=== PATIENT | male | born 1960 | race Caucasian/White ===

== ENCOUNTER → 2019-12-22 12:55 | Outpatient (CLI) | payer BC, SELFPAY ==
--- NOTE | 2019-12-22 13:08 | CR.HP_ITS ---
CR - History & Physical - General Arrival date:: 12/22/19 Arrival time:: 13:00 Date of Referral:: 12/10/19 - Changed insurance, Tana Espino is not in network so is changing to [facility] for his CR. Date of CR Evaluation:: 12/22/19 Referring Physician: DR. BETTINA ORTA Primary Diagnosis: S/P MITRAL VALVE REPLACEMENT - History of Present Cardiac Event Onset Date: Enter Onset Date of cardiac illnesses in Comment field below Heart valve replacement or repair:: Yes - MITRAL VALVE REPAIR w/CLIP IN 2017, MITRAL VALVE REPLACED 08/02/2019 Type of Symptoms:: FAILED PREVIOUS REPAIR - Medications Home Medications: Ambulatory Orders Medication Instructions Recorded Acetaminophen [Acetaminophen 8 650 mg PO 12/22/19 Hour] Atorvastatin Calcium [Lipitor] 20 mg PO QHS 12/22/19 Daily Vitamin Formula-Minerals 12/22/19 Enalapril Maleate [Vasotec] 15 mg PO QHS 12/22/19 Metoprolol Succinate [Toprol Xl] 25 mg PO 12/22/19 - Allergies Allergies/Adverse Reactions: Allergies spironolactone Allergy (Verified 12/22/19 13:23) RENAL INSUIFFICIENCY - Sleep Disorder Evaluation Hx of Sleep Apnea: Yes Do you snore loudly (louder than talking or can be heard through closed doors)?: Yes - HAS CPAP DEVICE USES QHS @ HOME Advanced Directives - Advanced Directives Power of Filtration Supervisor: Yes Living Will: Yes Advance Directives Information Provided: No Advance Directives on File: No - PATIENT ASKED TO BRING FOR SCANNING TO HIS EHR. DNR Order?:: No - MOLST See MOLST form: No Past Medical History - Covid-19 Screening Fever: No Unexplained muscle aches: No Current respiratory symptoms: No Upper respiratory infections symptoms: No Gastro-intestinal symptoms: No [id number] symptoms: No Has tested positive for COVID-19 in last 30 days: No Had contact w/person w/symptoms or Covid-19 (+) last 14 days: No Has High Risk Exposures ID'd by Health dept/Inf Control team: No 65 years or older:: No Lives in Assisted Living facility:: No Has a chronic lung disease or moderate to severe asthma:: No Has a serious heart condition:: Yes Immunocompromised:: No Severely obese (Body Mass Index of 40 or higher):: No Diabetic:: No Has chronic kidney disease undergoing dialysis:: No Has liver disease:: No - Past Medical Illness Medical History: Past Medical History (Last Updated 12/22/19 @ 13:32 by Jaime Castillo CRT, [place], BS) Arrhythmia I49.9 PAF CAD (coronary artery disease) I25.10 CHF (congestive heart failure) Onset Date: ~11/2018 I50.9 COLONOSCOPY Onset Date: ~1999 Cardiogenic shock R57.0 Chest pain at rest R07.9 DIAGNOSTIC CARDIAC CATH Onset Date: ~2002 History of acute anterior wall myocardial infarction I25.2 NSTEMI Hyperlipidemia E78.5 Hypertension Onset Date: ~07/10/16 I10 - Past Surgical History Surgical History: Past Surgical History (Last Updated 12/22/19 @ 13:33 by Jaime Castillo CRT, [place], BS) H/O coronary artery bypass surgery Onset Date: ~01/10/18 Z95.1 H/O mitral valve replacement Onset Date: ~03/25/18 Z95.2 UNSUCCESSFUL History of appendectomy Z90.49 History of appendectomy Onset Date: ~1966 Z90.49 History of cardiac catheterization Onset Date: ~01/09/18 Z98.890 History of oral surgery Z98.890 History of tonsillectomy Onset Date: ~1968 Z90.89 Status post implantation of mitral valve leaflet clip Onset Date: ~04/07/18 Z98.890, Z95.818 OPEN mvr FAILED D/T ADHESIONS, CLIP 10 DAYS LATER - Family History Summary Family History: Family History (Last Updated 12/22/19 @ 13:34 by Jaime Castillo CRT, [place], BS) Other CAD (coronary artery disease) Cancer Diabetes High cholesterol Hypertension Myocardial infarction Social History - Smoking History Smoking Status: Never smoker Hx Tobacco Use: No Hx Smoking Exposure: No - Alcohol Use Alcohol Usage: Yes - VERY RARELY - Substance Abuse Hx Substance Use: No - Occupation Occupation (List type of work in comments):: Retired - [employer] - Hobbies, Recreation, Social Activities Hobbies: Sports - GOLF, Reading, Watch TV, Walking, Exercise - BIKE RIDING, Other Recreational Activities: I am able to engage in all my recreational activities Social Environment - Status Marital Status: Single - Current Living Arrangements Living Environment:: Family - Children Do any of your children live nearby?: No - Safety Do you feel safe in your surroundings?: Yes - Assistance Do you need any assistance at home?: NO Review of Systems - Review of Systems Hints: Right click = Denies ([place]ash). Left click = Reports ([place]) Review of Present Symptoms: Reports: Shortness of Breath with Exertion - STILL SLIGHT BUT VERY MUCH IMPROVED SINCE THIS RECENT SURGERY, Wound Healing, Heart Arrhythmia/Irregularities - SINUS RHYTHM W HX OF RBBB, Appetite - Normal, Appetite - Special Diet - LOW SODIUM, LOW FAT, LOW CHOLESTEROL, Sleep - Normal - HAS HOME CPAP NO OXYGEN WEARS NIGHTLY.. Denies: Shortness of Breath at Rest, Dizziness/Lightheadedness, Fatigue - Pain Is Patient Pain Free?: Yes Pain Location: none Pain Level: 0/10 Risk Factor Assessment - Chief Complaint Chief Complaint: PATIENT PRESENTST O CARDIAC REHAB TODAY FOLLWOING RECENT MITRAL VALVE REPLACEMENT SURGERY AT THE [facility]. HE HAD PREVIOUS ATTEMPT MITRAL VALVE W/CLIP HOWEVER THAT ATTEMPT VALVED WHENT HE CLIP STARTED TO LEAK. SUBSEQUENTLY THE PATIENT UNDERWENT A SECOND PROCEDURE THIS TIME A FULL MITRAL VA LVE REPLACEMENT WAS DONE. - Vital Signs Temperature: 97.7 F Respiratory Rate: 16 Pulse Ox: 98 Blood Pressure: 110/72 - Pulse Pulse Rate: 74 Pulse Rhythm: Regular - Hypertension How long have you been treated?: 30 On medication(s)?: YES Blood Pressure Sitting - Left Arm: 110/72 - Blood Cholesterol/Lipids Total Cholesterol (mg/dL) Goal = less than 200 mg/dL: 0 - UNAVAILABLE FROM THE [facility] - Diabetes Nutrition Referral for Diabetes: No - Obesity Height: 5 ft 6 in Weight:: 158 lb 9.6 oz Weight in Pounds: 158.6 lbs Weight Source: Standing Scale Body Mass Index (BMI): 25.6 Nutritional Referral for Obesity: No - Physical Inactivity Physical Inactivity: Reg Exercise 30 min/day - WALKING BROTHER'S DOG DAILY, AND HAVE ALOS GOLFED W/CART A FEW TIMES., Recreational activity - Risk Stratification Risk Guidelines: Lowest Risk: Risk Factor for Smoking, Risk Factor for Dyslipidemia, Risk Factor for Hypertension - For Smoking Smoking Risk Guidelines: Smoking Low Risk: None or quit greater than 6 months ago. Smoking Moderate Risk: Smoker or quit 6 months or less ago. Smoking High Risk: Smoker - For Dyslipidemia Dyslipidemia Risk Guidelines: Low Risk: Moderate Risk: High Risk: 15-25% fat 25.1-29% fat >/= 30% fat. <7% sat fat 7-9% sat fat >9% sat fat. <150 mg chol 150-299 mg chol >/= 300 mg chol. LDL <100 LDL 100-129 LDL >/= 130. Chol/HDL ratio <5.0 Chol/HDL ratio 5.0-6.0 Chol/HDL ratio >6.0. Triglycerides <100 Triglycerides 100-149 Triglycerides >/= 150 - For Diabetes Mellitus Diabetes Risk Guidelines: Diabetes Low Risk: HgA1c <6.5% and/or FBG <120. Diabetes Moderate Risk: HgA1c 6.6-7.9% and/or FBG 120-180. Diabetes High Risk: HgA1c >/= 8% and/or FBG >180 - For Obesity/Overweight Obesity/Overweight Risk Guidelines: Obesity Low Risk: BMI <25.0. Obesity Moderate Risk: BMI 25-29.9. Obesity High Risk: BMI >/= 30.0 - For Hypertension Hypertension Risk Guidelines: Hypertension Low Risk: Systolic <120 and Diastolic <80. Hypertension Moderate Risk: Systolic 120-139 and Diastolic 80-89. Hypertension High Risk: Systolic >/= 140 and Diastolic >/= 90 - For Sedentary Lifestyle Sedentary Lifestyle Risk Guidelines: Sedentary Lifestyle Low Risk: >/= 1,500 kcal/week. Sedentary Lifestyle Moderate Risk: 700-1,499 kcal/week. Sedentary Lifestyle High Risk: < 700 kcal/week - For Depression Depression Risk Guidelines: Depression Low Risk: Not clinically depressed. Depression Moderate Risk: Mildly depressed. Depression High Risk: Clinically depressed - Family History Family History: Family History (Last Updated 12/22/19 @ 13:34 by Jaime Castillo, SEATER ASSEMBLER, HOT METAL MIXER OPERATOR, BS) Other CAD (coronary artery disease) Cancer Diabetes High cholesterol Hypertension Myocardial infarction Motivation - Motivation to Participate On a scale of 1 to 10, how prepared are you to commit to attending program?: 10 What do you see as barriers to successfully being able to complete the program?: NONE What do you see as the benefits of succesfully completing the program? In other words, what do you hope to get out of participating in the program?: GETTING BACK TO HEALTH, BUILDING MY STAMINA Are there issues you are dealing with that will interfere with completing the p rogram?: NONE, OCCASIONALLY HAVE LEG PAIN FROM ARTHRITIS ON L5 CAUSING SCIATIC PAIN Do you have a spouse or signficant other, family or friends who will help support you to complete the program?: YES
--- NOTE | 2019-12-22 13:09 | CR.ITP_ITS ---
Diagnosis - General Information Admitting Diagnosis: S/P MITRAL VALVE REPLACEMENT Secondary Diagnosis: CAD, CHF, H/O ACUTE ANTERIOR DC NSTEMI, HYPERLIPIDEMIA, HYPERTENSION, MITRAL VALVE REPAIR W/CLIP UNSUCCESSFUL, CABG. Personal Learning Style:: Audio/Visual, Written Barriers to Learning: Vision Impairment Gave educational material for:: Treating Heart Disease, Emotions & Heart Disease, Stress Management & Relaxation, Sleep Disorders & Heart Disease, How The Heart Works, What it means to have Heart Disease, How Coronary Artery Disease is Diagnosed, Heart Procedures, What Heart Medications Do, Risk Factors & Modifications, Living an Active Life, Nutrition - Education/Goals Individual Counseling: Initial Assessment: Abnormal Cholesterol Levels, High Blood Pressure Cardiac Rehabilitation Goals: 1. Maintain the individual as the primary focus of care. 2. To improve the patient's quality of life. 3. Identification of cardiac risk factors and provide cardiac risk factor management. 4. Enhance the psychosocial status of the patient. 5. Reconditioning enough to allow the patient to resume customary activities. 6. Control symptoms of cardiac disease Personal Goals: Initial Assessment: Improve energy level, Participate in home exercise program, Get back to work, or to resume activities faster, Improve muscle strength and endurance, Improve diet and eating habits (eat healthier), Control risk factors (learn risk factor modification) Scale for measuring improvement of personal goals: Enter appropriate number in Comments. 2 = Unchanged. 3 = Slightly Better. 4 = Moderate Improvement. 5 = Met my Goal - Diagnosis & Disease Process Outcomes/Goals: Pt IDs own risk factors & lifestyle modifications by Session 10, Verbalizes symptoms of angina & response by session 3., Pt independently manages Plan/Interventions: Assist Pt to ID & engage in lifestyle modification to reduce CVD risk, Instruct on individual risk factors, Review symptoms of angina & emergency actions, Review secondary diagnosis & identify educational needs. - Safety Referral to Physical Therapy: No Referral to [facility] Case Management: No Fall Risk Assessed:: Yes Assistive Devices:: None Exercise - Initial Assessment - Visit Date of Eval: 12/22/19 Session #:: 0 - INITIAL EVALUATION PRE CARDIAC REHAB Mets: Pre-: >5 METS for 30 minutes by discharge - Physician Prescribed Exercise Modalities: Treadmill, Rower, Airdyne, NuStep Frequency: 3x/week for 12 weeks [36 sessions] Intensity: 60-80% maximum heart rate reserve from GXT Current METSs:: 3.5 Target Heart Rate:: 104-136 Current RPE:: 11-13 Resting Blood Pressure: 110/72 EKG Type: SINUS RHYTHM W/RBBB Current Physical Activity or Exercising minutes: 30 DAILY WALKING - Outcomes & Goals Goals:: Verbalizes understanding of THR, RPE & goal METS by session 6, Documents in home exercise log/reports 30 min aerobic 5 day/wk by DC, Demonstrates accurate pulse taking by DC - Intervention & Plan Exercise Program Goals: Instruct on personal THR & RPE, Instruct on MET level & personal MET goal, Instruct on home exercise - Physical Activity Home Exercise Physical Activity - Home Exercise: Safe Exercise, Warm-up, Self-monitoring, Cool-Down, Home Exercise > 30 min Daily, Sitting Time <3 hours/daily - Outcomes & Goals Outcomes/Goals: Demonstrates correct Warm-up/exercise Cool-Down (S3) if = 2.5 METs, Verbalizes symptoms of exercise intolerance by Session 3 (S3), Demonstrate safe equipment use (S3) & follows exercise prescrition (6) - Intervention & Plan Plan/Intervention: Instruct warm-up & cool-down if exercising at > 2 METs, Instruct on symptoms of exercise intolerance & actions to take, Instruct & monitor on saf, Assess intial functional capacity & safety risk Nutrition - Initial Assessment - Program Goals Nutrition Program Goals: LDL <100 optimal. 100 - 129 Near optimal. 130 - 159 Borderline High. 160 - 189 High. Total Cholesterol <200 desirable. 200 - 239 Borderline High. >/= 240 High. HDL < 40 Low >/=60 High. Triglycerides <150 desirable. <199 optimal. VlDL 5 - 40. HgbA1C <7%. BMI <25 - Visit Date of Assessment:: 12/22/19 Session #:: 0 - INITIAL EVALUATION PRE CARDIAC REHAB - Cholesterol/Lipids Determine presence & major risk factors that modify LDL goal: Hypertension or hypertensive medication, Family history of premature CHD in Male < 55 years: female <65 yearsFa Outcomes/Goals: Pt IDs own risk factors & lifestyle modifications by Session 10, Verbalizes symptoms of angina & response by session 3., Pt independently manages Intervention/Plan: Instruct on personal lipid levels & lipid goals/NCEP guidelines, Instruct on cholesterol - Diabetes (Other Core Measures) Diabetes Type: Not Applicable - Weight Mgt (Other Care) Not Applicable: Yes Height: 5 ft 6 in Weight:: 158 lb 8 oz BMI: 25.5 Diagnosis Overweight/Obesity BMI> 30% ICD-10 E66: No Diagnosis High BMI/Morbid Obesity BMI> 35% ICD-10 Z68: No Outcomes/Goals: Pt sets, maintains & shows weight loss goal & trend during rehab Intervention/Plan: Instruct on ideal BMI & set weight loss goal w/patient - Healthy Eating Habits Will attend diet classes:: Yes Outcomes/Goals:: Consume diet rich in vegs,fruits,whole grain/high fiber,fish,lean meat, Limit sat/trans fats,cholesterol & added salts & sugars Intervention/Plan:: Assess current eating habits - Education Gave educational materials for:: Healthy eating Medical - Initial Assessment - Visit Date of Eval: 12/22/19 Session #:: 0 - INITIAL EVALUATION PRE-CARDIAC REHAB - Medication Compliance Preventative Medication(s):: Aspirin, MO inhibitor, Clopidogrel/P2Y12 inhibit, Ticagrelor/P2Y12 inhibitor, Statin/lipid, Beta vee, Warfarin/Coumadin, Eliquis, ARB (Angiotensi Rcap) H/O mental health issues: depression, anxiety, or addiction?: No Doesn?t believe in the benefits of treatment?: No Believes medications are unnecessary or harmful?: No Has a concern about medication side effects?: No Expresses concern over the cost of medications?: No Outcomes/Goals: Verbalizes medications,desired effect & common side effects @ DC, Pt self-reports following medication regimen, Keeps card in wallet w/medications listed by DC Interventions/plans: Instruct on medication effects & side effects, Review medication list w/patient every two weeks, Instruct importance of taking meds as ordered & assist problem solving - Tobacco Use Tobacco Use: Non-smoker - Hypertension Hypertension Diagnosis:: Hypertension ICD-10 I10 Resting Blood Pressure:: 110/72 Citizen [place] [employer] Hypertension Guidelines: Citizen [place] [employer] Hypertension Guidelines. Normal BP Less than 120/80. Elevated BP 120/80. Hypertension Stage 1: BP 130-139/80-89. Hypertesnion Stage 2: BP 140 or higher/90 or higher. Hypertension Crisis: BP higher than 180/120 Outcomes/Goals: Able to verbalize/achieve optimal blood pressure <130/80, Incorporates diet changes & exercise for blood pressure control by DC Interventions/plan: Instruct on optimal blood pressure, hypertension & medications, Instruct on effects of sodium, alcohol, stress, exercise &hypertension - Tobacco Cessation Referral Smoking Cessation Referral:: No Individual Education/Counseling:: No Education Schedule Given:: Yes - INCLUDING INSTRUCTION FOR ONLINE EDUCATION D/T COVID-19 SOCIAL DISTANCING Psychosocial - Initial Assess - VIsit Date of Eval: 12/22/19 Session #:: 0 - INITIAL EVALUATION Not Applicable: Yes History of previous Mental disease:: No - Target Goals Target Goals: Assess presence or absence of depression. Using a valid screening tool, maximizes coping skills. Positive support system - Psychosocial Test Tool Used:: Ferrans Ayo QOL Cardiac, PHQ-9 Questionnaire phq-9 Severity: Severity. 1-4 Minimal Depression. 5-9 Mild Depression. 10-14 Moderate Depression. 15-19 Moderately Sever Depression. 20-27 Severe Depression. Rule: - Outcomes/Goals: See list Psychosocial Outcomes/Goals:: ID's personal stressors & 2 strategies to manage stress by discharge - Intervention/Plan: See List Interventions/Plan:: Assess stressors,coping strategies & signs of derpression on admission, Instruct/assist pt to develop coping & personal stress Mgt strategies, Instruct patient to recognize signs & symptoms of depression, Instruct patient to recog Patient Health Questionnaire Initial Assessment 1. Little interest or pleasure in doing things: Several days 2. Feeling down, depressed, or hopeless: Not at all 3. Trouble falling or staying asleep, or sleeping too much: Not at all 4. Feeling tired or having little energy: Several days 5. Poor appetite or overeating: Several days 6. Feeling bad about yourself -- or that you are a failure or have let yourself or your family down: Not at all 7. Trouble concentrating on things, such as reading the newspaper or watching television: Not at all 8. Moving or speaking so slowly that other people could have noticed. Or the opposite - being so fidgety or restless that you have been moving around a lot more than usual: Not at all 9. Thoughts that you would be better off , or of hurting yourself in some way: Not at all How difficult have these problems made it for you to do your work, take care of things at home, or get along with other people?: Not difficult at all Total Score: 3 FRACISCO-Q SV Test - Statements CAD is a disease of the arteries in the heart: False Examples of risk factors for heart disease: True Angina is chest pain or discomfort: True The benefits of resistance training include: True Eating more meat and dairy products: False Anti-platelet medications such as aspirin are important: True The only effective way to manage stress: False An exercise warm-up slowly increases heart rate: I Don't Know Prepared, processed foods usually have high sodium: True Depression is common after a heart attack: True The statin medications lower cholesterol: True To control blood pressure, lower the amount of sodium: True If someone gets chest discomfort during walking: False Transfats are partially hydrogenated vegetable oils: I Don't Know Sleep apnea that is not treated increases the risk: I Don't Know To control cholesterol, one should become a vegetarian: I Don't Know Someone knows if he/she is exercising at the right level: True Diabetes cannot be prevented with exercise & health eating: I Don't Know Stress is a large risk for heart attack: True A diet that can help lower blood pressure is rich in: True - Total Score Total Correct Responses: 15 Self-Efficacy Initial Assessment We would like to know how confident you are in doing certain activities. Please select your confidence level for:: Select your confidence level for the following using the scale 1-10 where 1 is not at all confident and 10 is totally confident. Your score is the average of all 6 responses. Fatigue: How confident are you that you can keep the fatigue caused by your disease from interfering with the things you want to do? Select Number: 4 Physical Discomfort or Pain: How confident are you that you can keep the physical discomfort or pain of your disease from interfering with the things you want to do? Select Number: 4 Emotional Distress: How confident are you that you can keep the emotional distress caused by your disease from interfering with the things you want to do? Select Number: 8 Other Symptoms or Health Problems: How confident are you that you can keep other symptoms or health problems from interfering with the things you want to do? Select Number: 8 Different Tasks and Activities: How confident are you that you can do the different tasks and activities needed to manage your health condition so as to reduce your need to see a doctor? Select Number: 9 Medication: How confident are you that you can do things other than just taking medication to reduce how much your illness affects your everyday life? Select Number: 9 Total Score:: 7 Nutrition Survey - Nutrition Survey Instructions Scoring Instructions: Scoring is as follows: Yes = 1 points. No = 0 point. Patient score that is >/=12 is considered to be at potential nutritional risk and could benefit from a referral to a registered dietitian. - Nutrition Survey Initial Have you lost >10 lbs over the past 2 months without trying?: No Are you following a special diet at home for diabetes, low fat, or low salt?: Yes Are you interested in meeting with a dietitian for help understanding your diet?: Yes Do you eat less than 3 meals a day?: Yes Do you eat fatty meats (herman, sausage, ribs, etc), fried foods, desserts, large amounts of salad dressings, margarine, butter, or cheese most days?: No Do you have food allergies? [Enter types in comment field]: No Do you eat in restaurants more than 3 times a week?: No Do you season food with salt, seasoning salt, or garlic salt?: No Do you used canned, boxed, frozen meals, or soups, seasoning packets?: No Total Score:: 3
[2019-12-22 13:47] VITALS: BP 110/72; PULSE 74; RESP 16; TEMP 36.5; O2SAT 98; BMI 25.6
[2019-12-22 14:51] VITALS: BP 110/72; BMI 25.5
== END ==
PROVIDERS: PCP Family Medicine
DX: I11.0 Hypertensive heart disease with heart failure (principal); I50.9 Heart failure, unspecified; E78.5 Hyperlipidemia, unspecified; I25.10 Atherosclerotic heart disease of native coronary artery without angina pectoris

== ENCOUNTER 2019-12-31 13:00 | Outpatient (RCR) | payer BC, SELFPAY ==
[2019-12-22 13:47] VITALS: BMI 25.6
== END 2019-12-31 23:59 ==
LOC: CR 13:00
PROVIDERS: PCP Family Medicine
DX: I34.0 Nonrheumatic mitral (valve) insufficiency (principal)
CPT/HCPCS: 93798

== ENCOUNTER 2020-01-31 13:00 | Outpatient (RCR) | payer BC, SELFPAY ==
[2019-12-22 13:47] VITALS: BMI 25.6
[2019-12-22 14:51] VITALS: BMI 25.5
--- NOTE | 2020-01-24 08:41 | PCM.CR.ITP ---
Exercise - 30-day Assessment - Visit Date of Eval: 01/24/20 Session #:: 12 - Physician Prescribed Exercise Modalities: Treadmill, Airdyne, NuStep Frequency: 3x/week for 12 weeks [36 sessions] Intensity: 60-80% of age predicted maximum heart rate reserve Current METSs:: 4.5 Target Heart Rate:: 104-136 Current RPE:: 12-13 Maximum Excercise HR:: 114 Resting Blood Pressure: 94/50 Maximum Exercise Blood Pressure: 132/70 EKG Type: sinus bradycardia sinus rhythm BBB occasional PVCs and PACs - Outcomes & Goals Goals:: Verbalizes understanding of THR, RPE & goal METS by session 6, Documents in home exercise log/reports 30 min aerobic 5 day/wk by DC, Demonstrates accurate pulse taking by DC - Intervention & Plan Exercise Program Goals: Instruct on personal THR & RPE, Instruct on MET level & personal MET goal, Show patient to take own pulse /validate performance until accurate, Instruct on home exercise - 30-day Reassessments 30 day Reassessments:: Progressing - Physical Activity Home Exercise Physical Activity - Home Exercise: Safe Exercise, Warm-up, Self-monitoring, Cool-Down, Home Exercise > 30 min Daily, Sitting Time <3 hours/daily - Outcomes & Goals Outcomes/Goals: Demonstrates correct Warm-up/exercise Cool-Down (S3) if = 2.5 METs, Verbalizes symptoms of exercise intolerance by Session 3 (S3), Demonstrate safe equipment use (S3) & follows exercise prescrition (6) - Intervention & Plan Plan/Intervention: Instruct warm-up & cool-down if exercising at > 2 METs, Instruct on symptoms of exercise intolerance & actions to take, Instruct & monitor on saf, Assess intial functional capacity & safety risk - 30-day Reassessments 30 day Reassessments:: Progressing Nutrition - Initial Assessment - Program Goals Nutrition Program Goals: LDL <100 optimal. 100 - 129 Near optimal. 130 - 159 Borderline High. 160 - 189 High. Total Cholesterol <200 desirable. 200 - 239 Borderline High. >/= 240 High. HDL < 40 Low >/=60 High. Triglycerides <150 desirable. <199 optimal. VlDL 5 - 40. HgbA1C <7%. BMI <25 Patient has diagnosis of Hyperlipidemia (ICD E78)?: Yes - Visit Date of Assessment:: 01/24/20 Session #:: 12 - no updated labs - Cholesterol/Lipids Determine presence & major risk factors that modify LDL goal: Hypertension or hypertensive medication, Age men > 45 years; women >/= 55 years Outcomes/Goals: Pt IDs own risk factors & lifestyle modifications by Session 10, Verbalizes symptoms of angina & response by session 3., Pt independently manages Intervention/Plan: Instruct on personal lipid levels & lipid goals/NCEP guidelines, Instruct on cholesterol Referral to dietitian:: Yes - Diabetes (Other Core Measures) Diabetes Type: Not Applicable - Weight Mgt (Other Care) Not Applicable: Yes Height: 5 ft 6 in Weight:: 160 lb BMI: 25.8 Diagnosis Overweight/Obesity BMI> 30% ICD-10 E66: No Diagnosis High BMI/Morbid Obesity BMI> 35% ICD-10 Z68: No Outcomes/Goals: Pt sets, maintains & shows weight loss goal & trend during rehab Intervention/Plan: Instruct on ideal BMI & set weight loss goal w/patient, Assist pt to ID & incorporate diet changes for weight loss by S9, Encourage goal of using 250-300dcal per session for weight loss - Healthy Eating Habits Outcomes/Goals:: Consume diet rich in vegs,fruits,whole grain/high fiber,fish,lean meat, Limit sat/trans fats,cholesterol & added salts & sugars Intervention/Plan:: Assess current eating habits - Education Gave educational materials for:: Healthy eating Medical- 30-Day Assessment - Visit Date of Eval: 01/24/20 Session #:: 12 - Medication Compliance Preventative Medication(s):: Aspirin, Statin/lipid, Beta vee H/O mental health issues: depression, anxiety, or addiction?: No Doesn?t believe in the benefits of treatment?: No Believes medications are unnecessary or harmful?: No Has a concern about medication side effects?: No Expresses concern over the cost of medications?: No Outcomes/Goals: Verbalizes medications,desired effect & common side effects @ DC, Pt self-reports following medication regimen, Keeps card in wallet w/medications listed by DC Interventions/plans: Instruct on medication effects & side effects, Review medication list w/patient every two weeks, Instruct importance of taking meds as ordered & assist problem solving 30-day Reassessments:: Progressing - Tobacco Use Tobacco Use: Non-smoker - Hypertension Hypertension Diagnosis:: Hypertension ICD-10 I10 Resting Blood Pressure:: 94/50 - controlled [place] [employer] Hypertension Guidelines: [place] [employer] Hypertension Guidelines. Normal BP Less than 120/80. Elevated BP 120/80. Hypertension Stage 1: BP 130-139/80-89. Hypertesnion Stage 2: BP 140 or higher/90 or higher. Hypertension Crisis: BP higher than 180/120 Peak Exercise Blood Pressure:: 132/70 Outcomes/Goals: Able to verbalize/achieve optimal blood pressure <130/80, Incorporates diet changes & exercise for blood pressure control by DC Interventions/plan: Instruct on optimal blood pressure, hypertension & medications, Instruct on effects of sodium, alcohol, stress, exercise &hypertension 30 day Reassessments:: Progressing - Tobacco Cessation Referral Smoking Cessation Referral:: No Individual Education/Counseling:: No Education Schedule Given:: Yes Psychosocial - 30-Day Assess - VIsit Date of Eval: 01/24/20 Session #:: 12 Not Applicable: Yes History of previous Mental disease:: No - Target Goals Target Goals: Assess presence or absence of depression. Using a valid screening tool, maximizes coping skills. Positive support system - Psychosocial Test Tool Used:: Rashmi Rollins QOL Cardiac, PHQ-9 Questionnaire phq-9 Severity: Severity. 1-4 Minimal Depression. 5-9 Mild Depression. 10-14 Moderate Depression. 15-19 Moderately Sever Depression. 20-27 Severe Depression. Rule: - Referral to Behavioral Health PS - Interventions: Yes Attend Stress Management Classes, No Referral to Behavioral Health if PHQ-9 score >9:, No Referral to [facility], No Referral to Physician if PHQ-9 if score is 5-9: - Outcomes/Goals: See list Psychosocial Outcomes/Goals:: ID's personal stressors & 2 strategies to manage stress by discharge - Intervention/Plan: See List Interventions/Plan:: Assess stressors,coping strategies & signs of derpression on admission, Instruct/assist pt to develop coping & personal stress Mgt strategies, Instruct patient to recognize signs & symptoms of depression, Instruct patient to recog - 30-day Reassessments: 30 day Reassessments:: Progressing Patient Health Questionnaire 30-Day Re-eval Assessment 1. Little interest or pleasure in doing things: Not at all 2. Feeling down, depressed, or hopeless: Not at all 3. Trouble falling or staying asleep, or sleeping too much: Not at all 4. Feeling tired or having little energy: Several days 5. Poor appetite or overeating: Several days 6. Feeling bad about yourself -- or that you are a failure or have let yourself or your family down: Not at all 7. Trouble concentrating on things, such as reading the newspaper or watching television: Not at all 8. Moving or speaking so slowly that other people could have noticed. Or the opposite - being so fidgety or restless that you have been moving around a lot more than usual: Not at all 9. Thoughts that you would be better off , or of hurting yourself in some way: Not at all How difficult have these problems made it for you to do your work, take care of things at home, or get along with other people?: Not difficult at all Total Score: 2 Self-Efficacy 30-Day Re-eval Assessment We would like to know how confident you are in doing certain activities. Please select your confidence level for:: Select your confidence level for the following using the scale 1-10 where 1 is not at all confident and 10 is totally confident. Your score is the average of all 6 responses. Fatigue: How confident are you that you can keep the fatigue caused by your disease from interfering with the things you want to do? Select Number: 5 Physical Discomfort or Pain: How confident are you that you can keep the physical discomfort or pain of your disease from interfering with the things you want to do? Select Number: 5 Emotional Distress: How confident are you that you can keep the emotional distress caused by your disease from interfering with the things you want to do? Select Number: 8 Other Symptoms or Health Problems: How confident are you that you can keep other symptoms or health problems from interfering with the things you want to do? Select Number: 8 Different Tasks and Activities: How confident are you that you can do the different tasks and activities needed to manage your health condition so as to reduce your need to see a doctor? Select Number: 9 Medication: How confident are you that you can do things other than just taking medication to reduce how much your illness affects your everyday life? Select Number: 9 Total Score:: 7
[2020-01-24 08:51] VITALS: BP 132/70; BP 94/50; BMI 25.8
== END 2020-01-31 23:59 ==
LOC: CR 13:00
PROVIDERS: PCP Family Medicine
DX: I34.0 Nonrheumatic mitral (valve) insufficiency (principal)
CPT/HCPCS: 93798

== ENCOUNTER 2020-02-23 13:42 | Outpatient (RCR) | payer BC, SELFPAY ==
[2019-12-22 13:47] VITALS: BMI 25.6
[2020-01-24 08:51] VITALS: BMI 25.8
[2020-02-21 06:52] VITALS: BMI 25.9
== END 2020-03-01 23:59 ==
LOC: NS 13:42
PROVIDERS: PCP Family Medicine
DX: Z71.3 Dietary counseling and surveillance (principal); I25.10 Atherosclerotic heart disease of native coronary artery without angina pectoris; I10 Essential (primary) hypertension; E78.5 Hyperlipidemia, unspecified; Z95.2 Presence of prosthetic heart valve
CPT/HCPCS: 97802

== ENCOUNTER 2020-03-01 13:00 | Outpatient (RCR) | payer BC, SELFPAY ==
[2019-12-22 13:47] VITALS: BMI 25.6
[2020-01-24 08:51] VITALS: BMI 25.8
[2020-02-01 00:42] VITALS: BP 132/70; BP 94/50
--- NOTE | 2020-02-21 06:46 | CR.ITP_ITS ---
Exercise - 60-day Assessment - Visit Date of Eval: 02/21/20 Session #:: 23 - Physician Prescribed Exercise Modalities: Treadmill, Airdyne, NuStep Frequency: 3x/week for 12 weeks [36 sessions] Intensity: 60-80% of age predicted maximum heart rate reserve Current METSs:: 5.0 INCREASED FROM 4.5 Target Heart Rate:: 104-136 Current RPE:: 12-13 Maximum Excercise HR:: 124 Resting Blood Pressure: 90/74 Maximum Exercise Blood Pressure: 110/60 EKG Type: NSR WITH BBB OCCAS. PVCs. - Outcomes & Goals Goals:: Verbalizes understanding of THR, RPE & goal METS by session 6, Documents in home exercise log/reports 30 min aerobic 5 day/wk by DC, Demonstrates accurate pulse taking by DC - Intervention & Plan Exercise Program Goals: Instruct on personal THR & RPE, Instruct on MET level & personal MET goal, Show patient to take own pulse /validate performance until accurate, Instruct on home exercise - 30-day Reassessments 30 day Reassessments:: Progressing - Physical Activity Home Exercise Physical Activity - Home Exercise: Safe Exercise, Warm-up, Self-monitoring, Cool-Down, Home Exercise > 30 min Daily, Sitting Time <3 hours/daily - Outcomes & Goals Outcomes/Goals: Demonstrates correct Warm-up/exercise Cool-Down (S3) if = 2.5 METs, Verbalizes symptoms of exercise intolerance by Session 3 (S3), Demonstrate safe equipment use (S3) & follows exercise prescrition (6) - Intervention & Plan Plan/Intervention: Instruct warm-up & cool-down if exercising at > 2 METs, Instruct on symptoms of exercise intolerance & actions to take, Instruct & monitor on saf, Assess intial functional capacity & safety risk - 30-day Reassessments 30 day Reassessments:: Progressing Nutrition - 60-Day Assessment - Program Goals Nutrition Program Goals: LDL <100 optimal. 100 - 129 Near optimal. 130 - 159 Borderline High. 160 - 189 High. Total Cholesterol <200 desirable. 200 - 239 Borderline High. >/= 240 High. HDL < 40 Low >/=60 High. Triglycerides <150 desirable. <199 optimal. VlDL 5 - 40. HgbA1C <7%. BMI <25 Patient has diagnosis of Hyperlipidemia (ICD E78)?: Yes - Visit Date of Assessment:: 02/21/20 Session #:: 23 - NO RECENT LABS AVAILABLE - Cholesterol/Lipids Determine presence & major risk factors that modify LDL goal: Hypertension or hypertensive medication, Age men > 45 years; women >/= 55 years Outcomes/Goals: Pt IDs own risk factors & lifestyle modifications by Session 10, Verbalizes symptoms of angina & response by session 3., Pt independently manages Intervention/Plan: Instruct on personal lipid levels & lipid goals/NCEP guidelines, Instruct on cholesterol 30-day Reassessments:: Progressing - Diabetes (Other Core Measures) Diabetes Type: Not Applicable - Weight Mgt (Other Care) Not Applicable: Yes Height: 5 ft 6 in Weight:: 161 lb BMI: 25.9 Diagnosis Overweight/Obesity BMI> 30% ICD-10 E66: No Diagnosis High BMI/Morbid Obesity BMI> 35% ICD-10 Z68: No Outcomes/Goals: Pt sets, maintains & shows weight loss goal & trend during rehab Intervention/Plan: Instruct on ideal BMI & set weight loss goal w/patient 30 day Reassessments:: Met - Healthy Eating Habits Will attend diet classes:: Yes Outcomes/Goals:: Consume diet rich in vegs,fruits,whole grain/high fiber,fish,lean meat, Limit sat/trans fats,cholesterol & added salts & sugars Intervention/Plan:: Assess current eating habits 30-day Reassessments:: Progressing - Education Gave educational materials for:: Healthy eating Medical- 60-Day Assessment - Visit Date of Eval: 02/21/20 Session #:: 23 - Medication Compliance Preventative Medication(s):: Aspirin, Statin/lipid, Beta vee H/O mental health issues: depression, anxiety, or addiction?: No Doesn?t believe in the benefits of treatment?: No Believes medications are unnecessary or harmful?: No Has a concern about medication side effects?: No Expresses concern over the cost of medications?: No Outcomes/Goals: Verbalizes medications,desired effect & common side effects @ DC, Pt self-reports following medication regimen, Keeps card in wallet w/medications listed by DC Interventions/plans: Instruct on medication effects & side effects, Review medication list w/patient every two weeks, Instruct importance of taking meds as ordered & assist problem solving 30-day Reassessments:: Progressing - Tobacco Use Tobacco Use: Non-smoker - Hypertension Hypertension Diagnosis:: Hypertension ICD-10 I10 Resting Blood Pressure:: 90/74 - CONTROLLED ON MEDICATION [place] [employer] Hypertension Guidelines: [place] [employer] Hypertension Guidelines. Normal BP Less than 120/80. Elevated BP 120/80. Hypertension Stage 1: BP 130-139/80-89. Hypertesnion Stage 2: BP 140 or higher/90 or higher. Hypertension Crisis: BP higher than 180/120 Peak Exercise Blood Pressure:: 110/60 - CONTROLLED Outcomes/Goals: Able to verbalize/achieve optimal blood pressure <130/80, Incorporates diet changes & exercise for blood pressure control by DC Interventions/plan: Instruct on optimal blood pressure, hypertension & medications, Instruct on effects of sodium, alcohol, stress, exercise &hypertension - Tobacco Cessation Referral Smoking Cessation Referral:: No Individual Education/Counseling:: No Education Schedule Given:: Yes Psychosocial - 60-Day Assess - VIsit Date of Eval: 02/21/20 Session #:: 23 Not Applicable: Yes - Target Goals Target Goals: Assess presence or absence of depression. Using a valid screening tool, maximizes coping skills. Positive support system - Psychosocial Test Tool Used:: PHQ-9 Questionnaire phq-9 Severity: Severity. 1-4 Minimal Depression. 5-9 Mild Depression. 10-14 Moderate Depression. 15-19 Moderately Sever Depression. 20-27 Severe Dep ression. Rule: - Referral to Behavioral Health PS - Interventions: Yes Attend Stress Management Classes, No Referral to Behavioral Health if PHQ-9 score >9:, No Referral to [facility], No Referral to Physician if PHQ-9 if score is 5-9: - Outcomes/Goals: See list Psychosocial Outcomes/Goals:: ID's personal stressors & 2 strategies to manage stress by discharge - Intervention/Plan: See List Interventions/Plan:: Assess stressors,coping strategies & signs of derpression on admission, Instruct/assist pt to develop coping & personal stress Mgt strategies, Instruct patient to recognize signs & symptoms of depression, Instruct patient to recog - 30-day Reassessments: 30 day Reassessments:: Progressing Patient Health Questionnaire 60-Day Re-eval Assessment 1. Little interest or pleasure in doing things: Not at all 2. Feeling down, depressed, or hopeless: Not at all 3. Trouble falling or staying asleep, or sleeping too much: Not at all 4. Feeling tired or having little energy: Several days 5. Poor appetite or overeating: Not at all 6. Feeling bad about yourself -- or that you are a failure or have let yourself or your family down: Not at all 7. Trouble concentrating on things, such as reading the newspaper or watching television: Not at all 8. Moving or speaking so slowly that other people could have noticed. Or the opposite - being so fidgety or restless that you have been moving around a lot more than usual: Not at all 9. Thoughts that you would be better off , or of hurting yourself in some way: Not at all How difficult have these problems made it for you to do your work, take care of things at home, or get along with other people?: Not difficult at all Total Score: 1 Self-Efficacy 60-Day Re-eval Assessment We would like to know how confident you are in doing certain activities. Please select your confidence level for:: Select your confidence level for the following using the scale 1-10 where 1 is not at all confident and 10 is totally confident. Your score is the average of all 6 responses. Fatigue: How confident are you that you can keep the fatigue caused by your disease from interfering with the things you want to do? Select Number: 8 Physical Discomfort or Pain: How confident are you that you can keep the physical discomfort or pain of your disease from interfering with the things you want to do? Select Number: 8 Emotional Distress: How confident are you that you can keep the emotional distress caused by your disease from interfering with the things you want to do? Select Number: 8 Other Symptoms or Health Problems: How confident are you that you can keep other symptoms or health problems from interfering with the things you want to do? Select Number: 8 Different Tasks and Activities: How confident are you that you can do the different tasks and activities needed to manage your health condition so as to reduce your need to see a doctor? Select Number: 9 Medication: How confident are you that you can do things other than just taking medication to reduce how much your illness affects your everyday life? Select Number: 10 Total Score:: 8
[2020-02-21 06:52] VITALS: BP 110/60; BP 90/74; BMI 25.9
== END 2020-03-01 23:59 ==
LOC: CR 13:00
PROVIDERS: PCP Family Medicine
DX: I34.0 Nonrheumatic mitral (valve) insufficiency (principal)
CPT/HCPCS: 93798

== ENCOUNTER 2020-03-12 20:07 | Observation (INO) | payer BC, SELFPAY ==
[2019-12-22 13:47] VITALS: BMI 25.6
[2020-02-21 06:52] VITALS: BMI 25.9
[2020-03-12] VITALS (7 sets, daily range): BP systolic 108–129; BP diastolic 49–63; PULSE 45–62; RESP 13–18; TEMP 36.4–36.6; O2SAT 96–100; BMI 26.6
--- NOTE | 2020-03-12 20:06 | ECHOD_ITS ---
Reason For Study: Arrhythmia Procedure This was a 2D Doppler, Color Flow transthoracic echocardiogram. The exam was of adequate technical quality. Exam performed portable in ICU/CCU. Left Ventricle Mildly dilated left ventricle. Mild segmental systolic dysfunction (see wall motion). The estimated ejection fraction is 50 %. Post operative septal motion. Mid-Anterior : Hypokinetic. Mid-Inferior: Hypokinetic. Mid-inferoseptal : Hypokinetic. Mid-anteroseptal : Hypokinetic. [place] : Hypokinetic. Right Ventricle Normal RV size. Normal systolic function. [place] The left atrium is moderately enlarged. Normal right atrium. No doppler evidence for ASD. Mitral Valve Stable appearing mechanical mitral valve apparatus. Trivial transvalvular insufficiency of the mitral valve. Tricuspid Valve Normal tricuspid valve. Mild tricuspid valve insufficiency. Right ventricular systolic pressure estimated to be 44 mmHg. Aortic Valve Trisinus/trileaflet aortic valve. Normal aortic valve. Pulmonic Valve The pulmonic valve is not well visualized. Trivial pulmonic valve insufficiency. Great Vessels The aortic root is not well visualized. Pericardium/Pleural No pericardial effusion. MMode/2D Measurements & Calculations LVIDd: 5.8 cm IVSd: 1.1 cm LA dimension: 4.9 cm LVIDs: 4.4 cm LVPWd: 1.2 cm RVDd: 4.4 cm FS: 23.4 % LAV(MOD-sp4): 91.7 ml LVAd ap4: 35.5 cm2 SV(MOD-sp4): 83.7 ml EDV(MOD-sp4): 132.2 ml EDV(sp4-el): 132.5 ml LVAs ap4: 19.2 cm2 ESV(MOD-sp4): 48.5 ml ESV(sp4-el): 47.7 ml EF(MOD-sp4): 63.3 % EF(sp4-el): 64.0 % SV(sp4-el): 84.8 ml LA A4 area: 27.5 cm2 RA A4 area: 17.7 cm2 Time Measurements MV dec time: 0.23 sec Doppler Measurements & Calculations MV E max hank: 179.3 cm/sec Lat Peak E' Hank: 11.9 cm/sec Med Peak E' Hank: 7.6 cm/sec MV A max hank: 72.7 cm/sec E/E' lat: 15.0 E/E' med: 23.7 MV E/A: 2.5 MV V2 max: 178.2 cm/sec MV P1/2t max hank: 179.1 cm/sec Ao V2 max: 141.6 cm/sec MV max P.7 mmHg MV P1/2t: 80.8 msec Ao max P.0 mmHg MV V2 mean: 80.9 cm/sec MV mean P.4 mmHg MV dec slope: 649.5 cm/sec2 MV V2 VTI: 48.0 cm MVA(P1/2t): 2.7 cm2 LV V1 max: 111.2 cm/sec MR max hank: 647.1 cm/sec PA V2 max: 103.0 cm/sec LV V1 max P.9 mmHg MR max P.5 mmHg MR mean hank: 474.4 cm/sec MR mean P.7 mmHg MR VTI: 196.0 cm TR max hank: 321.3 cm/sec TR max P.3 mmHg Interpretation Summary Mildly dilated left ventricle. Mild segmental systolic dysfunction (see wall motion). The estimated ejection fraction is 50 %. Post operative septal motion. The left atrium is moderately enlarged. Stable appearing mechanical mitral valve apparatus. Trivial transvalvular insufficiency of the mitral valve. Mild tricuspid valve insufficiency. Trivial pulmonic valve insufficiency. Right ventricular systolic pressure estimated to be 44 mmHg. Transmitral diastolic flow velocities suggest diastolic dysfunction (pseudonormal pattern). Ordering Physician: Pamella Gutierrez Referring Physician: Karolina Nolasco Performed By: Navin Lange RCS
--- NOTE | 2020-03-12 20:06 | PCM.HP.STD ---
Problem List (1) Vertigo Status: Acute (2) Hypotension due to drugs Status: Acute (3) Bradycardia Status: Acute (4) CAD (coronary artery disease) Status: Chronic Qualifiers: Coronary Disease-Associated Artery/Lesion type: unspecified vessel or lesion type [place] vs. transplanted heart: unspecified whether [place] or transplanted heart Associated angina: angina presence unspecified Qualified Code(s): I25.10 - Atherosclerotic heart disease of [place] coronary artery without angina pectoris (5) S/P CABG x 3 Status: Chronic (6) S/P MVR (mitral valve repair) Status: Chronic (7) S/P MVR (mitral valve replacement) Status: Chronic (8) Right leg DVT Status: Chronic Qualifiers: Affected thrombotic vein of extremity: unspecified vein of extremity Chronicity: chronic Qualified Code(s): I82.501 - Chronic embolism and thrombosis of unspecified deep veins of right lower extremity (9) Diastolic CHF Status: Chronic Qualifiers: Heart failure chronicity: chronic Qualified Code(s): I50.32 - Chronic diastolic (congestive) heart failure (10) HTN (hypertension) Status: Chronic Qualifiers: Hypertension type: essential hypertension Qualified Code(s): I10 - Essential (primary) hypertension (11) HLD (hyperlipidemia) Status: Chronic Qualifiers: Hyperlipidemia type: unspecified Qualified Code(s): E78.5 - Hyperlipidemia, unspecified History of Present Illness Date of Admission: 03/12/20 Chief Complaint: Dizziness, hypotension, bradycardia The patient is a 59 y/o M w/ PMHx: CAD s/p CABG, Valvular heart disease s/p MVR attempt x 1 and most recent success 08/2019, RLE DVT 08/2019 following valvular repair, Diastolic CHF, PAF, HTN, HLD, Hx NSTEMI who presents to the [facility] as direct admission from [facility] ED on 03/12/20 with history of sudden onset lightheadedness, dizziness with room spinning vertiginous sensation while outside working, not improving initially with nausea and 3 episodes of emesis prompting EMS to OSH ED [place]. He notes he has been having some lightheadedness and dizziness with ongoing outpatient medication adjustments secondary to lower BP but never had the vertigo associated. Following transition to [place] with hydration and meclizine he denied any further vertigo. In the OSH ED work-up included initial vital sign T 36.5, heart rate 68, respiratory rate 18, BP 118/29, 98% on room air although he did vacillate and decreased down to 77/53 with a heart rate decreasing into the 40s additionally, CBC unremarkable aside hemoglobin mildly decreased 12.2, INR 2.7, troponin normal x1, BMP with BUN/creatinine 14/1.33, sodium 136, potassium 3.4, glucose 151, magnesium 1.9, EKG repeat upon transition to [facility] with this rhythm with first-degree AVB no acute evidence of ischemia, CT head without acute intracranial findings. At the outside facility patient was given 2 L normal saline, Zofran, meclizine 25?1, Compazine and glucagon. Upon presentation to [facility] patient noted feeling improved, resolution of vertigo, no sensation of lightheadedness or dizziness with resumption of sinus rhythm with no current bradycardia. Past Medical History Past Medical History (Chronic Problems): Chronic Problems (Last Updated 12/22/19 @ 13:32 by Jaime Castillo, LESLEY, COMMUNITY RELATIONS REP, BS) CAD (coronary artery disease) (Chronic) S/P CABG x 3 (Chronic) S/P MVR (mitral valve repair) (Chronic) S/P MVR (mitral valve replacement) (Chronic) Right leg DVT (Chronic) Diastolic CHF (Chronic) HTN (hypertension) (Chronic) HLD (hyperlipidemia) (Chronic) Medical History: Medical History (Last Updated 12/22/19 @ 13:32 by Jaime Castillo, LESLEY, COMMUNITY RELATIONS REP, BS) Arrhythmia I49.9 PAF CAD (coronary artery disease) I25.10 CHF (congestive heart failure) Onset Date: ~11/2018 I50.9 COLONOSCOPY Onset Date: ~1999 Cardiogenic shock R57.0 Chest pain at rest R07.9 DIAGNOSTIC CARDIAC CATH Onset Date: ~2002 History of acute anterior wall myocardial infarction I25.2 NSTEMI Hyperlipidemia E78.5 Hypertension Onset Date: ~07/10/16 I10 Allergies spironolactone Allergy (Verified 12/22/19 13:23) RENAL INSUIFFICIENCY Home Medications: Ambulatory Orders Medication Instructions Recorded Acetaminophen [Acetaminophen 8 650 mg PO 12/22/19 Hour] Atorvastatin Calcium [Lipitor] 20 mg PO QHS 12/22/19 Daily Vitamin Formula-Minerals 12/22/19 Metoprolol Succinate [Toprol Xl] 25 mg PO 12/22/19 Oxycodone HCl 03/12/20 Warfarin [Coumadin (PBKC)] 2 mg PO QHS 03/12/20 Surgical History: Surgical History (Last Updated 12/22/19 @ 13:33 by Jaime Castillo CRT, [place], BS) H/O coronary artery bypass surgery Onset Date: ~01/10/18 Z95.1 H/O mitral valve replacement Onset Date: ~03/25/18 Z95.2 UNSUCCESSFUL History of appendectomy Z90.49 History of appendectomy Onset Date: ~1966 Z90.49 History of cardiac catheterization Onset Date: ~01/09/18 Z98.890 History of oral surgery Z98.890 History of tonsillectomy Onset Date: ~1968 Z90.89 Status post implantation of mitral valve leaflet clip Onset Date: ~04/07/18 Z98.890, Z95.818 OPEN mvr FAILED D/T ADHESIONS, CLIP 10 DAYS LATER Surgical History: - - CABG x3 with FARRAR to LAD, VG to OM, VG to RCA, MVR initial attempt unsuccessful with repeat 08/2019, tonsillectomy, appendectomy. Psychiatric History: No pertinent psych hx Lives: With Family - Patient lives with his sister. Smoking Status: Never smoker Tobacco Use: Non-smoker Alcohol: Rare Drugs: None - *Family History Maternal Family History: Family History (Last Updated 12/22/19 @ 13:34 by Jaime Castillo CRT, [place], BS) Other CAD (coronary artery disease) Cancer Diabetes High cholesterol Hypertension Myocardial infarction History Items: - - Patient denies any market maternal family history including heart disease, diabetes, cancer. Paternal Family History: Family History (Last Updated 12/22/19 @ 13:34 by Jaime Castillo CRT, [place], BS) Other CAD (coronary artery disease) Cancer Diabetes High cholesterol Hypertension Myocardial infarction History Items: High Cholesterol, Heart Disease, Hypertension Review of Systems Constitutional: Reports: Malaise, Weakness, Fatigue. Denies: Anorexia, Chills, Fever, Weight Change HEENT: Reports: - - Vertigo.. Denies: Head Aches, Sinus Congestion, Sinus Drainage Cardiovascular: Reports: Light Headedness. Denies: Chest Pain, Chest Pressure, Chest Tightness, Heaviness, Orthopnea, Palpitations, Syncope Respiratory: Denies: Cough, Shortness of Breath, Shortness of breath at rest, Shortness of breath upon exertion, Sputum production Gastrointestinal: Reports: Nausea, Vomiting. Denies: Abdominal Pain Genitourinary: Denies: Dysuria Musculoskeletal: Denies: Joint Pain, Joint Tenderness Skin: Denies: Rash, Wounds Neurological: Reports: - - Vertigo.. Denies: Focal weakness, Numbness, Tingling Psychiatric: Denies: Anxiety, Depression, Homicidal Ideations, Suicidal Ideations Hematologic/ Lymphatic: Reports: Anemia, Easy Bruising, Easy Bleeding VTE Information - Inpt Only VTE Present on Admission: No VTE Mechan Device Prophylaxis: SCD's VTE Pharm Prophylaxis ordered?: No Reason prophylaxis not ordered:: Medical Contraindication - On coumadin, therapeutic. Patient Problems: Active and Suspected Problems (Last Updated 12/22/19 @ 13:32 by Jaime Castillo, PROGRAM MANAGEMENT MANAGER, COMMUNITY RELATIONS REP, BS) Vertigo (Acute) Hypotension due to drugs (Acute) Bradycardia (Acute) Subjective: Patient seated upright in the ICU bed, no acute distress, notes resolution of prior symptoms including vertigo, lightheadedness, dizziness. Objective: Physical Examination: General: awake, alert, oriented x 3 and cooperative, seated upright in ICU bed in no apparent distress. Skin: normal color, turgor, no icterus, cyanosis, healed sternotomy incision. HEENT: AT/NC, EOMI, PERRLA, mildly dry MM, no carotid bruits or JVD noted. Lungs: CTA bilaterally, moderate effort, mild decrease BL bases, no rales, ronchi or wheezing. Heart: Currently regular rate and rhythm; no gallop, rub audible. Abdomen: soft, NTTP, ND, normal BS, no HSM. Extremities: no cyanosis, clubbing, or edema. Neurological: patient awake, alert, oriented x 3; cognitive function intact; pupils equally reactive to light and accomodation; cranial nerves II-XII grossly normal, moving all 4 extremities, no focal deficits, strength mildly to moderately globally decreased secondary to recent acute presentation, no vertigo currently, no nystagmus evident. Psychiatric: affect appears fatigued otherwise normal, no acute evidence of depressive or anxiety feelings. - Physical Exam Vitals/I&O's: Body Mass Index (BMI) 25.6 Assessment/Plan All Active Problems (Last Updated 12/22/19 @ 13:32 by Jaime Castillo, PROGRAM MANAGEMENT MANAGER, COMMUNITY RELATIONS REP, BS) Vertigo (Acute) Hypotension due to drugs (Acute) Bradycardia (Acute) The patient is a 59 y/o M w/ PMHx: CAD s/p CABG, Valvular heart disease s/p MVR attempt x 1 and most recent success 08/2019, RLE DVT 08/2019 following valvular repair, Diastolic CHF, PAF, HTN, HLD, Hx NSTEMI who presents to the [facility] as direct admission from [facility] ED on 03/12/20 with history of sudden onset lightheadedness, dizziness with room spinning vertiginous sensation while outside working, not improving initially with nausea and 3 episodes of emesis prompting EMS to OSH ED [place]. 1. Dizziness, Lightheadedness with transient Vertigo, Hypotension, Bradycardia: Planned admission from OSH ED to the ICU; however, presentation VS improved, appropriate for PCU status, will maintain on telemetry, cycle cardiac enzymes, mag 1.9, obtain orthostatic VS, obtain ECHO, consult Cardiology given ongoing concerns, hold his hypertensive regimen with PRN agent addition if necessary, PRN meclizine. 2. Hyperglycemia: Outside hospital ED glucose 151, will obtain A1c. 3. Hypokalemia: Admission K+ 3.4, magnesium at outside facility 1.9, supplementation will be given, repeat level in AM. 4. PAF: Holding metoprolol, continue Coumadin with INR trending, therapeutic at outside facility noted to be 2.7. 5. Diastolic CHF: Noted on history from outside facility, echocardiogram requested, continue Coumadin with INR trending, holding patient metoprolol and ARB, continue statin. Judiciously hydrating as outside facility administered 2 L. 6. Valvular Heart Disease: s/p MVR 2018 noted to have failed, repeat 08/2019 successful, will obtain ECHO as noted above. Ongoing cardiac rehab notes at [facility]. 7. Right lower extremity DVT, history of: Patient per discussion with DVT following operative intervention in July, with MVR, continued currently on Coumadin, INR therapeutic at outside facility noted to be 2.7, trend. 8. CAD: s/p CABG x3 with FARRAR to LAD, VG to OM, VG to RCA, continue Coumadin with INR trending, statin, holding BB and ARB as noted given acute presentation. 9. Hypertension: Holding patient regimen given hypotension, add back if appropriate at lower dose if appropriate. 10. Hyperlipidemia: Continue home statin regimen. 11. DVT Prophylaxis: SCDs, Coumadin with INR trending. 12. CODE status: Patient VITA is his Sister Julissa with whom he lives and living will is currently in place. Discussed CODE status at length including difference between FULL code, DNR-CCA and DNR-CC status. Following discussions about the differences in these status, requested Full Code status. Advanced Care Planning Face to Face Time: 16 minutes. OBSV E&M: 12770 Initial observation care L3 Procedures: 97318 Advncd Care Plan 30 Min
[2020-03-12] MEDS: Jantoven 2 MG Tablet PO (21:15)
[2020-03-12] MEDS: Famotidine 20 MG Tablet PO (21:15)
[2020-03-12] MEDS: Atorvastatin Calcium 20 MG Tablet PO (21:15)
[2020-03-12] MEDS: 0.9% Normal Saline 1,000 ML 100 ML IV (21:15)
[2020-03-12 21:19] LABS: Magnesium 1.9 mg/dL (1.6-2.6); T4 Free Direct 0.88 ng/dL (0.76-1.46); Thyroid Stim Hormone (TSH) 3.87 uIU/mL (0.358-3.74)
[2020-03-12] MEDS: 0.9% Saline Lock 10 ML Syringe IV (23:21)
[2020-03-12 23:37] LABS: International Normalized Ratio 2.7; Prothrombin Time (Protime)PT. 28.3 SECONDS (11.7-14.9)
[2020-03-12 23:44] LABS: Hemoglobin A1c 5.4 % (3.8-5.6)
[2020-03-13] VITALS (11 sets, daily range): BP systolic 94–121; BP diastolic 47–66; PULSE 43–65; RESP 12–19; TEMP 36.5–36.8; O2SAT 90–100
[2020-03-13 03:16] LABS: Absolute Lymphocyte Count 1.75 X10^3/uL (0.83-4.51); Absolute Neutrophil Count 5.3 X10^3/uL (2.0-7.7); Basophil# 0.05 X10^3/uL; Basophil% 0.6 % (0-1); Eosinophil# 0.12 X10^3/uL; Eosinophils% 1.5 % (0-5); Hemoglobin 10.3 g/dL (13.0-16.5); Lymphocyte # 1.75 X10^3/ul (4.0); Mean Corp Hgb Conc 33.2 g/dL (32-36); Mean Corpuscular Hgb 31.3 pg (27.0-32.0); Mean Corpuscular Volume 94.2 fL (80-94); Mean Platelet Vol. 9.7 fl (6.2-12.0); Monocyte# 0.73 X10^3/uL; Monocyte% 9.2 % (0-10); NRBC Flagged by Analyzer 0 % (0-5); Neutrophil # 5.27 X10^3/uL (2.7-7.7); Neutrophil % 66.4 % (47-70); Platelet Count 185 K/mm3 (150-450); RBC Distribution Width CV 13.8 % (11.6-14.6); Red Blood Count 3.29 M/mm3 (4.6-6.2); White Blood Count 7.9 K/mm3 (4.4-11.0)
[2020-03-13 03:42] LABS: AST(SGOT) 19 U/L (15-37); Alanine Aminotransfer ALT/SGPT 22 U/L (16-61); Albumin, Serum 3.2 g/dL (3.2-5.0); Alkaline Phosphatase 54 U/L (45-117); Anion Gap 4 (5-15); BUN 10 mg/dL (7-18); BUN/Creat Ratio 10.4 RATIO (10-20); Calcium,Total 8.1 mg/dL (8.5-10.1); Chloride 110 mmol/L (98-107); Creatinine, Serum 0.96 mg/dL (0.70-1.30); EST Glomerular Filtration Rate 84 mL/min (>60); Est Glom Filt Rate - Afr Amer 102 mL/min (>60); Estimated Creatinine Clearance 73.84 ml/min; Globulin 3.1 g/dL (2.2-4.2); Glucose 89 mg/dL (74-106); Potassium 4.1 mmol/L (3.5-5.1); Protein, Total 6.3 g/dL (6.4-8.2); Sodium Level 141 mmol/L (136-145)
--- NOTE | 2020-03-13 05:55 | EKG12_ITS ---
Test Reason : AM EKG Blood Pressure : / mmHG Vent. Rate : 052 BPM Atrial Rate : 052 BPM P-R Int : 208 ms QRS Dur : 126 ms QT Int : 518 ms P-R-T Axes : 075 -41 -61 degrees QTc Int : 481 ms Sinus bradycardia Left axis deviation Left ventricular hypertrophy with QRS widening T wave abnormality, consider lateral ischemia Abnormal ECG No previous ECGs available Confirmed by MAIRA WETZEL, RANDALL ([id number]), online editor PALOMA ARROYO ([id number]) on 03/15/2020 11:23:58 AM Referred By: ALEN Confirmed By:ALONDRA RAO MD
[2020-03-13] MEDS: 0.9% Normal Saline 1,000 ML 100 ML IV (05:59)
--- NOTE | 2020-03-13 07:18 | PN_ITS ---
Patient Problems: Active and Suspected Problems (Last Updated 12/22/19 @ 13:32 by Jaime Castillo, AQUACULTURE AND FISHERIES PROFESSOR, FOREST FIRE PREVENTION SPECIALIST, BS) Vertigo (Acute) Hypotension due to drugs (Acute) Bradycardia (Acute) Reason for Visit: Follow-up on bradycardia and hypotension Subjective: Patient was seen and examined. He was admitted last night as a direct admission from [facility] emergency department with sudden onset lightheadedness, dizziness with nausea and 3 episodes of vomiting. He was noted to have had hypotension with bradycardia. Vitals/I&O's: Vital Signs Temp Pulse Resp BP Pulse Ox 98.2 F 51 L 12 100/52 L 98 03/13/20 01:55 03/13/20 03:32 03/13/20 01:55 03/13/20 01:55 03/13/20 01:55 Oxygen Delivery Method Room Air Weight: 75.6 kg Body Mass Index (BMI) 26.6 Intake and Output for Last 24 Hours 03/11/20 03/12/20 03/13/20 23:59 23:59 23:59 Intake Total 240 / 240 873.33 / 873.33 Output Total 600 / 600 1020 / 1020 Balance -360 / -360 -146.67 / -146.67 General: Alert, Oriented x3, Cooperative, No apparent distress HEENT: Atraumatic, PERRLA, EOMI, Normocephalic Oral: Moist Mucosa Neck: Supple Lungs: Clear to auscultation, Normal air movement Cardiovascular: Regular rate, Regular Rhythm, Normal S1, Normal S2, No murmurs, - - midline CABG scar Abdomen: Bowel Sounds Present, Soft, Non Tender, Non-Distended, No Hepato- splenomegaly Extremities: No edema Skin: No rashes Musculoskeletal: No Tenderness to Palpation of Joints or Extremities Lymphatic: No Cervical, Supraclavicular, or Inguinal Adenopathy Neurological: Cranial nerves II-XII grossly intact, Neuro grossly intact Psych/Mental Status: Normal Affect, Appropriate Laboratory Results 03/12/20 20:45: Magnesium 1.9, TSH 3.87 H, Free T4 0.88 03/12/20 20:45: Troponin I < 0.015 03/12/20 23:20: PT 28.3 H, INR 2.7 03/12/20 23:20: Hemoglobin A1c 5.4 03/12/20 23:20: Troponin I < 0.015 03/13/20 03:10: WBC 7.9, RBC 3.29 L, Hgb 10.3 L, Hct 31.0 L, MCV 94.2 H, MCH 31.3, MCHC 33.2, RDW Std Deviation 47.0 H, RDW Coeff of Franklyn 13.8, Plt Count 185, MPV 9.7, Immature Gran % (Auto) 0.300, Neut % (Auto) 66.4, Lymph % (Auto) 22.0, Gregg % (Auto) 9.2, Eos % (Auto) 1.5, Baso % (Auto) 0.6, Absolute Neuts (auto) 5.3, Absolute Lymphs (auto) 1.75, Nucleated RBC % 0 03/13/20 03:10: Sodium 141, Potassium 4.1, Chloride 110 H, Carbon Dioxide 27.0, Anion Gap 4 L, BUN 10, Creatinine 0.96, Estim Creat Clear Calc 73.84, Est GFR (MDRD) Af Amer 102, Est GFR (MDRD) Non-Af 84, BUN/Creatinine Ratio 10.4, Glucose 89, Calcium 8.1 L, Total Bilirubin 0.40, AST 19, ALT 22, Alkaline Phosphatase 54, Total Protein 6.3 L, Albumin 3.2, Globulin 3.1, Albumin/Globulin Ratio 1.0 03/13/20 03:10: Troponin I < 0.015 Current Medications Acetaminophen (Tylenol) 650 mg PO Q6H PRN PRN PRN Reason: Pain Score 1-10/Temp > 100.7 F Al Hydroxide/Mg Hydroxide (Mylanta Ii) 30 ml PO Q6H PRN PRN PRN Reason: Gastric Burning Albuterol Sulfate (Ventolin Aerosols) 2.5 mg INHALATION Q2H PRN PRN PRN Reason: Dyspnea, wheezing Atorvastatin Calcium (Lipitor) 20 mg PO QHS [facility] Last Admin: 03/12/20 21:15 Dose: 20 mg Documented by: Famotidine (Pepcid) 20 mg PO BID [facility] Last Admin: 03/12/20 21:15 Dose: 20 mg Documented by: Guaifenesin (Robitussin) 20 ml PO Q4H PRN PRN PRN Reason: COUGH Sodium Chloride () 1,000 mls @ 100 mls/hr IV .Q10H [facility] Last Admin: 03/13/20 05:59 Dose: 100 mls/hr Documented by: Magnesium Hydroxide (Milk Of Magnesia) 30 ml PO DAILY PRN PRN PRN Reason: Constipation Meclizine HCl (Antivert) 12.5 mg PO 4X/DAY PRN PRN PRN Reason: recurrent vertigo Melatonin (Melatonin) 3 mg PO QHS PRN PRN PRN Reason: INSOMNIA Morphine Sulfate () 2 mg IV Q3H PRN PRN PRN Reason: Pain Score 6-10 Nitroglycerin (Nitrostat) 0.4 mg SUBLINGUAL Q5M PRN PRN Reason: CARDIAC/CHEST PAIN Ondansetron HCl (Zofran) 4 mg IV Q8H PRN PRN PRN Reason: NAUSEA/VOMITING Oxycodone HCl (Oxyir) 5 mg PO Q4H PRN PRN PRN Reason: Pain Score 4-5 Prochlorperazine Edisylate (Compazine Iv) 5 mg IV Q4H PRN PRN PRN Reason: Breakthrough Nausea/Vomiting Psyllium Hydrophilic Mucilloid (Metamucil) 1 packet PO DAILY PRN PRN PRN Reason: Constipation Senna/Docusate Sodium (Senokot-S, Vilma-Colace) 2 tablet PO BID PRN PRN PRN Reason: Constipation Sodium Chloride () 10 - 40 ml IV UD PRN PRN Reason: Multilumen/Encarnacion Flush Last Admin: 03/12/20 23:21 Dose: 40 ml Documented by: Sodium Chloride (0.9% Nacl (Sterile) Posiflush) 10 - 40 ml IV UD PRN PRN Reason: Port access or dressing change Sodium Chloride () 10 - 40 ml IV UD PRN PRN Reason: SALINE FLUSH Throat Lozenges (Cepacol Sore Throat Lozenge) 1 lozenge MUCOUS MEM Q2H PRN PRN PRN Reason: SORE THROAT Warfarin Sodium (Jantoven) 2 mg PO DAILY@1700 [facility] Last Admin: 03/12/20 21:15 Dose: 2 mg Documented by: STROKE Vital Signs/Narrative: Vital Signs Pulse 03/13/20 03:32 51 L Medical Necessity - Tobacco Use Smoking Status: Never smoker Tobacco Use: Non-smoker Assessment/Plan All Active Problems (Last Updated 12/22/19 @ 13:32 by Jaime Castillo, AQUACULTURE AND FISHERIES PROFESSOR, FOREST FIRE PREVENTION SPECIALIST, BS) Vertigo (Acute) Hypotension due to drugs (Acute) Bradycardia (Acute) 1. Transient hypotension, bradycardia, appears resolved, stable vitals Off metoprolol for now. Troponins are negative. 2D echo is pending Cardiology consulted, will continue to monitor 2. Hypokalemia/hypomagnesemia, resolved 3. History of recent DVT, on Coumadin, INR therapeutic at 2.6 Continue on Coumadin 4. Paroxysmal atrial fibrillation/ Chronic diastolic CHF/Valvular heart disease/CAD status post CABG/hyperlipidemia, appears stable Continue on warfarin, statin 5. DVT prophylaxis?INR therapeutic on Coumadin 6. Disposition: Pending cardiology evaluation Inpatient E&M: 02405 Subs Hosp L2
[2020-03-13] MEDS: Famotidine 20 MG Tablet PO ×2 (08:57→22:52)
[2020-03-13 09:00] LABS: International Normalized Ratio 2.6; Prothrombin Time (Protime)PT. 27.5 SECONDS (11.7-14.9)
[2020-03-13] MEDS: 0.9% Normal Saline 1,000 ML 75 ML IV (15:59)
--- NOTE | 2020-03-13 16:02 | CON.PCM_ITS ---
Problem List (1) Vertigo Status: Acute (2) CAD (coronary artery disease) Status: Chronic Qualifiers: Coronary Disease-Associated Artery/Lesion type: unspecified vessel or lesion type [place] vs. transplanted heart: unspecified whether [place] or transplanted heart Associated angina: angina presence unspecified Qualified Code(s): I25.10 - Atherosclerotic heart disease of [place] coronary artery without angina pectoris (3) S/P CABG x 3 Status: Chronic (4) S/P MVR (mitral valve repair) Status: Chronic (5) S/P MVR (mitral valve replacement) Status: Chronic (6) HLD (hyperlipidemia) Status: Chronic Qualifiers: Hyperlipidemia type: unspecified Qualified Code(s): E78.5 - Hyperlipidemia, unspecified (7) HTN (hypertension) Status: Chronic Qualifiers: Hypertension type: essential hypertension Qualified Code(s): I10 - Essential (primary) hypertension (8) Diastolic CHF Status: Chronic Qualifiers: Heart failure chronicity: chronic Qualified Code(s): I50.32 - Chronic diastolic (congestive) heart failure (9) Bradycardia Status: Acute (10) Hypotension due to drugs Status: Acute Reason for Consult Date of Consultation: 03/13/20 History of Present Illness: The patient is a 59 year old white male who presents for evaluation of symptoms of dizziness/vertigo with findings of underlying sinus bradycardia superimposed upon a history of underlying CAD status post CABG (2017 with FARRAR to the LAD, SVG to the OM, SVG to the PDA), mitral valve repair (2017), mitral valve replacement-mechanical (2019), hyperlipidemia, hypertension, diastolic mediated CHF. The patient states that he was out walking yesterday and became dizzy/lightheaded and noted everything was spinning in a [place]. He apparently had nausea and emesis. He sat down and drank some water and felt somewhat better. He tried to be up and walking again and had recurrent symptoms. His friend took him to the [facility] emergency department. He felt as if they were a [facility] facility, where he has had his previous open heart surgery centers performed at before, he would be evaluated and cared for. However based upon his insurance no longer covering the [facility] system and not covering his [facility] well blower at [facility] he was transferred to [facility] for further evaluation and care. He was noted to have sinus bradycardia and hypotension upon original presentation. He has had his beta- blockers held. He has received IV fluids. His heart rate has fluctuated but he has episodes where he has normal sinus rhythm. His blood pressures have improved. He states he feels better overall but when he is up and about he still feels somewhat off balance. He notes with these episodes he has not had any concerning chest discomfort or difficulty breathing. He has not sensed palpitations. There has been no syncopal event. He states following his open heart surgery he did have paroxysmal atrial fibrillation. He does not recall having any episodes of that with his current situation. He states he has been compliant with his medications. This includes his anticoagulant therapy. [] Past Medical History Allergies/Adverse Reactions: Allergies spironolactone Allergy (Verified 12/22/19 13:23) RENAL INSUIFFICIENCY Home Medications: Ambulatory Orders Medication Instructions Recorded Acetaminophen [Acetaminophen 8 650 mg PO 12/22/19 Hour] Atorvastatin Calcium [Lipitor] 20 mg PO QHS 12/22/19 Daily Vitamin Formula-Minerals 12/22/19 Metoprolol Succinate [Toprol Xl] 25 mg PO 12/22/19 Oxycodone HCl 03/12/20 Warfarin [Coumadin (PBKC)] 2 mg PO QHS 03/12/20 Past Medical History (Chronic Problems): Chronic Problems (Last Updated 12/22/19 @ 13:32 by Jaime Castillo CRT, AUST[place], BS) CAD (coronary artery disease) (Chronic) S/P CABG x 3 (Chronic) S/P MVR (mitral valve repair) (Chronic) S/P MVR (mitral valve replacement) (Chronic) Right leg DVT (Chronic) Diastolic CHF (Chronic) HTN (hypertension) (Chronic) HLD (hyperlipidemia) (Chronic) Surgical History: - - CABG x3 with FARRAR to LAD, VG to OM, VG to RCA, MVR initial attempt unsuccessful with repeat 08/2019, tonsillectomy, appendectomy. Psychiatric History: No pertinent psych hx - *Family History Maternal Family History: Family History (Last Updated 12/22/19 @ 13:34 by Jaime Castillo CRT, [place]USTIN, BS) Other CAD (coronary artery disease) Cancer Diabetes High cholesterol Hypertension Myocardial infarction History Items: - - Patient denies any market maternal family history including heart disease, diabetes, cancer. Paternal Family History: Family History (Last Updated 12/22/19 @ 13:34 by Jaime Castillo, LABORER TREE TAPPING, BIOSTATISTICS DIRECTOR, BS) Other CAD (coronary artery disease) Cancer Diabetes High cholesterol Hypertension Myocardial infarction History Items: High Cholesterol, Heart Disease, Hypertension Lives: With Family - Patient lives with his sister. Smoking Status: Never smoker Tobacco Use: Non-smoker Alcohol: Rare Drugs: None Review of Systems - Review of Systems General: Denies: Fever, Night Sweats, Fatigue Cardiovascular: Denies: Chest Discomfort, Shortness of Breath, Orthopnea, PND, Peripheral Edema, Palpitations, Lightheadedness, Dizziness, Near Syncope, Syncope Respiratory: Denies: Cough, Sputum Production, Hemoptysis Gastrointestinal: Denies: Hematemesis, Hematochezia, Melena Genitourinary: Denies: Dysuria, Hematuria Skin: Denies: Rash Neurological: Reports: Vertigo Subjectve: This is an older than dated age appearing 59-year-old white male appears to be resting comfortably at the moment in no acute distress. Objective: Vital Signs Temp Pulse Resp BP Pulse Ox 97.8 F 59 L 19 H 106/47 L 97 03/13/20 12:05 03/13/20 12:05 03/13/20 12:05 03/13/20 12:05 03/13/20 12:05 Oxygen Delivery Method Room Air Weight: 166 lb 10.711 oz Body Mass Index (BMI) 26.6 Intake and Output for Last 24 Hours 03/11/20 03/12/20 03/13/20 23:59 23:59 23:59 Intake Total 240 / 240 1699.58 / 1699.58 Output Total 600 / 600 1570 / 1570 Balance -360 / -360 129.58 / 129.58 General: Awake, Alert, Oriented x 3, Cooperative, No Acute Distress HEENT: Atraumatic, Normocephalic, PERRL, EOMI, Sclera Non Icteric Lungs: Clear to auscultation Cardiovascular: Regular Rhythm, Normal S2, [place] Prosthetic S1 Abdomen: Bowel Sounds Present, Soft, Non Tender Extremities: No edema Psych/Mental Status: Appropriate 03/12/20 20:45: Magnesium 1.9 03/12/20 20:45: Troponin I < 0.015 03/12/20 23:20: PT 28.3 H, INR 2.7 03/12/20 23:20: Hemoglobin A1c 5.4 03/12/20 23:20: Troponin I < 0.015 03/13/20 03:10: WBC 7.9, RBC 3.29 L, Hgb 10.3 L, Hct 31.0 L, MCV 94.2 H, MCH 31.3, MCHC 33.2, Plt Count 185, MPV 9.7, Immature Gran % (Auto) 0.300, Neut % (Auto) 66.4, Lymph % (Auto) 22.0, [place] % (Auto) 9.2, Eos % (Auto) 1.5, Baso % (Auto) 0.6, Absolute Neuts (auto) 5.3, Nucleated RBC % 0 03/13/20 03:10: Sodium 141, Potassium 4.1, Chloride 110 H, Carbon Dioxide 27.0, Anion Gap 4 L, BUN 10, Creatinine 0.96, Est GFR (MDRD) Af Amer 102, Est GFR (MDRD) Non-Af 84, BUN/Creatinine Ratio 10.4, Glucose 89, Calcium 8.1 L, Total Bilirubin 0.40 03/13/20 03:10: Troponin I < 0.015 03/13/20 03:10: Magnesium 2.0 03/13/20 08:36: PT 27.5 H, INR 2.6 Rhythm: Sinus rhythm/sinus bradycardia EKG: ECHO: Interpretation Summary Mildly dilated left ventricle. Mild segmental systolic dysfunction (see wall motion). The estimated ejection fraction is 50 %. Post operative septal motion. The left atrium is moderately enlarged. Stable appearing mechanical mitral valve apparatus. Trivial transvalvular insufficiency of the mitral valve. Mild tricuspid valve insufficiency. Trivial pulmonic valve insufficiency. Right ventricular systolic pressure estimated to be 44 mmHg. Transmitral diastolic flow velocities suggest diastolic dysfunction (pseudonormal pattern). CT Surgery: 2018: [facility]: FARRAR to the LAD, SVG to the OM, SVG to the PDA and mitral valve repair 20: [facility]: Mitral valve replacement-mechanical Assessment/Plan 1. Vertigo The patient appears to have symptoms compatible with vertigo. This would raise concerns of a noncardiovascular issue requiring further evaluation care by internal medicine, ENT, and/or neurology. 2. CAD status post CABG At the moment the patient does not appear to have symptoms of acute CAD related symptoms. He should continue risk factor evaluation care as deemed appropriate. 3. Status post mitral valve repair and subsequent mitral valve replacement His echocardiogram would suggest a stable appearing mechanical mitral valve apparatus at this time. He should continue AHA antibiotic prophylaxis. 4. Hyperlipidemia He can undergo risk factor evaluation with fasting lipid profiles and medical management as appropriate. 5. Hypertension His blood pressure appears to be improving with holding his beta-vee medication and providing him with IV fluids. His pressures will need to be monitored with reassessment of medications as deemed appropriate. 6. Diastolic CHF The patient apparently has a history of diastolic CHF-chronic. At the moment he does not appear to have any acute related symptoms. He appears to be tolerating his IV fluids thus far. He will need to be monitored for any concerns. 7. Bradycardia The patient was noted to be bradycardic. This may be related to his rate limiting medications. They have been placed on hold. He will need to be monitored for any obvious underlying cardiac conduction system related issues requiring further evaluation and care. 8. Hypotension Again there is concerns as the patient's blood pressure being low and being related to medications as well as decreased intravascular volume. At the moment his rate limiting medications that affect his blood pressure are on hold. He has been receiving IV fluids. His blood pressure appears to be improving. He states he does feel better as his blood pressure has improved. For all, at the moment, the patient will continue to be monitored while in the hospital. His heart rate and blood pressure will be followed. His medications can be adjusted as deemed appropriate. Again he should be considered for further noncardiac evaluation of concerns of his vertigo as needed. This note was generated using a voice recognition system and there may be incorrect words, spelling or punctuation that were not noted when reviewing the office note prior to saving.
[2020-03-13] MEDS: Jantoven 2 MG Tablet PO (16:05)
[2020-03-13] MEDS: Acetaminophen 325 MG Tablet 650 MG PO (22:52)
[2020-03-13] MEDS: Atorvastatin Calcium 20 MG Tablet PO (22:52)
[2020-03-14] VITALS (7 sets, daily range): BP systolic 87–137; BP diastolic 55–76; PULSE 48–72; RESP 16–18; TEMP 36.6–36.9; O2SAT 95–100
[2020-03-14] MEDS: 0.9% Normal Saline 1,000 ML 75 ML IV (05:20)
[2020-03-14 06:52] LABS: Absolute Lymphocyte Count 2.02 X10^3/uL (0.83-4.51); Absolute Neutrophil Count 4.8 X10^3/uL (2.0-7.7); Basophil# 0.07 X10^3/uL; Basophil% 0.9 % (0-1); Eosinophil# 0.25 X10^3/uL; Eosinophils% 3.2 % (0-5); Hematocrit 32.6 % (40-54); Hemoglobin 10.9 g/dL (13.0-16.5); Lymphocyte # 2.02 X10^3/ul (4.0); Lymphocyte % 25.9 % (19-41); Mean Corp Hgb Conc 33.4 g/dL (32-36); Mean Corpuscular Hgb 31.6 pg (27.0-32.0); Mean Corpuscular Volume 94.5 fL (80-94); Mean Platelet Vol. 10.2 fl (6.2-12.0); Monocyte# 0.61 X10^3/uL; Monocyte% 7.8 % (0-10); NRBC Flagged by Analyzer 0 % (0-5); Neutrophil # 4.81 X10^3/uL (2.7-7.7); Neutrophil % 61.8 % (47-70); Platelet Count 193 K/mm3 (150-450); RBC Distribution Width SD 47.2 fl (35.1-43.9); Red Blood Count 3.45 M/mm3 (4.6-6.2); White Blood Count 7.8 K/mm3 (4.4-11.0)
[2020-03-14 07:02] LABS: International Normalized Ratio 2.2; Prothrombin Time (Protime)PT. 24.2 SECONDS (11.7-14.9)
[2020-03-14 07:33] LABS: ALB/GLOB Ratio 1.1 RATIO (0.9-2.4); AST(SGOT) 20 U/L (15-37); Alanine Aminotransfer ALT/SGPT 20 U/L (16-61); Albumin, Serum 3.5 g/dL (3.2-5.0); Alkaline Phosphatase 57 U/L (45-117); Anion Gap 4 (5-15); BUN 16 mg/dL (7-18); BUN/Creat Ratio 14.3 RATIO (10-20); Calcium,Total 8.5 mg/dL (8.5-10.1); Chloride 111 mmol/L (98-107); Creatinine, Serum 1.12 mg/dL (0.70-1.30); EST Glomerular Filtration Rate 71 mL/min (>60); Est Glom Filt Rate - Afr Amer 86 mL/min (>60); Estimated Creatinine Clearance 63.29 ml/min; Globulin 3.3 g/dL (2.2-4.2); Glucose 86 mg/dL (74-106); Potassium 3.7 mmol/L (3.5-5.1); Protein, Total 6.8 g/dL (6.4-8.2); Sodium Level 141 mmol/L (136-145)
[2020-03-14] MEDS: Famotidine 20 MG Tablet PO (09:59)
--- NOTE | 2020-03-14 11:34 | PCM.DC ---
- Discharge Diagnoses Current Active Problems: Current Active and Chronic Problems (Last Updated 12/22/19 @ 13:32 by Jaime Castillo, CORPORATE ACCOUNT EXECUTIVE, COLORED LIQUID PLASTIC APPLIER, BS) Vertigo (Acute) Hypotension due to drugs (Acute) Bradycardia (Acute) CAD (coronary artery disease) (Chronic) S/P CABG x 3 (Chronic) S/P MVR (mitral valve repair) (Chronic) S/P MVR (mitral valve replacement) (Chronic) Right leg DVT (Chronic) Diastolic CHF (Chronic) HTN (hypertension) (Chronic) HLD (hyperlipidemia) (Chronic) Reason(s) for Visit for Discharge Instructions: Dizziness, low blood pressure and heart rate You will use the following diet at home:: Cardiac Your food should be the consistency of: Regular Your liquids should be the consistency of: Regular/Thin Discharge Activity: Return to Normal Activity Additional Instructions: Take note of changes to your medications. Continue to keep your self hydrated. It is important that you see your project administrator in [facility] within a week to reassess your heart rate of your metoprolol. Continue to follow a low-salt, low-fat diet. Allergies/Adverse Reactions: Allergies spironolactone Allergy (Verified 12/22/19 13:23) RENAL INSUIFFICIENCY Medications to take at Discharge Acetaminophen [Acetaminophen 8 Hour] 650 mg PO 12/22/19 Atorvastatin Calcium [Lipitor] 20 mg PO QHS 12/22/19 Daily Vitamin Formula-Minerals 12/22/19 Warfarin [Coumadin] 2 mg PO QHS 03/12/20 Primary Care Physician: Karolina Nolasco MD [Primary Care Provider] - Please follow up with your Primary Care Physician in: within 1-2 weeks Test Results: Test results from this visit will be discussed in further detail at your follow-up appointment, if applicable. Please Follow Up With: Product Management Intern in [facility] in 1 week Proposed Discharge Date: 03/14/20
--- NOTE | 2020-03-14 11:41 | PCM.DC.SUM ---
Discharge Date and Diagnosis - Problem List Patient Problems: Active and Suspected Problems (Last Updated 12/22/19 @ 13:32 by Jaime Castillo CRT, AUSTIN, PAMELA) Vertigo (Acute) Hypotension due to drugs (Acute) Bradycardia (Acute) Date of Admission: 03/12/20 Date of Discharge: 03/14/20 - Primary Discharge Diagnosis Acute Problems: Active Problems (Last Updated 12/22/19 @ 13:32 by Jaime Castillo CRT, [place], PAMELA) Transient hypotension Bradycardia likely medication-related Hypokalemia Hypomagnesemia - Secondary Discharge Diagnosis Chronic Problems: Chronic Problems (Last Updated 12/22/19 @ 13:32 by Jaime Castillo CRT, [place], PAMELA) CAD (coronary artery disease) (Chronic) S/P CABG x 3 (Chronic) S/P MVR (mitral valve repair) (Chronic) S/P MVR (mitral valve replacement) (Chronic) Right leg DVT (Chronic) Diastolic CHF (Chronic) HTN (hypertension) (Chronic) HLD (hyperlipidemia) (Chronic) Hospital Course and Treatment Cardiology Operations: None Procedures: 2-D Echocardiogram Summary of Care Provided: The patient is a 59 year old M with past medical history of CAD status post CABG, valvular heart disease, diastolic CHF, present for atrial fibrillation, hypertension, hyperlipidemia who was admitted to the hospital as a direct admission from [facility] emergency department with lightheadedness, dizziness, vitiligo, and vomiting. Patient had gone there with sudden onset of dizziness and lightheadedness. He was given IV fluids and meclizine with no improvement. His blood pressure was found to be transiently low as well as he was also bradycardic. His potassium was 3.4. Patient's work-up was negative for acute intracranial pathology. He was transferred to [facility] when his symptoms were not improving. Patient was managed transiently in the ICU. He was noted to be bradycardic. His home metoprolol was held. His troponins were negative. TSH was elevated at 3.87, free T4 was 0.88 no acute findings on EKG. Cardiology was consulted. Recommendation was to continue to treat symptoms and keep patient hydrated. Orthostatic vitals were negative. Patient improved and was discharged off metoprolol. He was asked to follow-up with his primary cardiology in the [facility] within a week to have his metoprolol reevaluated. Patient Problems: Active and Suspected Problems (Last Updated 12/22/19 @ 13:32 by Jaime Castillo, BOOK JACKET COVER MACHINE OPERATOR, PUBLIC TRANSPORTATION INSPECTOR, BS) Vertigo (Acute) Hypotension due to drugs (Acute) Bradycardia (Acute) Subjective: On the day of discharge, patient was seen and examined. Denied any dizziness. He is able to ambulate with physical and occupational therapy. Orthostatic vitals is negative. Objective: Physical exam: General: Alert, Oriented x3, Cooperative, No apparent distress HEENT: Atraumatic, PERRLA, EOMI, Normocephalic Oral: Moist Mucosa Neck: Supple Lungs: Clear to auscultation, Normal air movement Cardiovascular: Regular rate, Regular Rhythm, Normal S1, Normal S2, No murmurs, - - midline CABG scar Abdomen: Bowel Sounds Present, Soft, Non Tender, Non-Distended, No Hepato-splenomegaly Extremities: No edema Skin: No rashes Musculoskeletal: No Tenderness to Palpation of Joints or Extremities Lymphatic: No Cervical, Supraclavicular, or Inguinal Adenopathy Neurological: Cranial nerves II-XII grossly intact, Neuro grossly intact Psych/Mental Status: Normal Affect, Appropriate - Physical Exam Vitals/I&O's: Vital Signs Temp Pulse Resp BP Pulse Ox 97.8 F 64 16 137/76 H 100 03/14/20 10:03/14/20 10:01 03/14/20 10:01 03/14/20 10:03/14/20 10:01 Oxygen Delivery Method Room Air Weight: 74.9 kg Body Mass Index (BMI) 26.6 Intake and Output for Last 24 Hours 03/12/20 03/13/20 03/14/20 23:59 23:59 23:59 Intake Total 240 / 240 2220.83 / 2220.83 1000 / 1000 Output Total 600 / 600 2045 / 2045 525 / 525 Balance -360 / -360 175.83 / 175.83 475 / 475 Laboratory Results 03/14/20 06:15: WBC 7.8, RBC 3.45 L, Hgb 10.9 L, Hct 32.6 L, MCV 94.5 H, MCH 31.6, MCHC 33.4, RDW Std Deviation 47.2 H, RDW Coeff of [place] 14.0, Plt Count 193, MPV 10.2, Immature Gran % (Auto) 0.400, Neut % (Auto) 61.8, Lymph % (Auto) 25.9, [place] % (Auto) 7.8, Eos % (Auto) 3.2, Baso % (Auto) 0.9, Absolute Neuts (auto) 4.8, Absolute Lymphs (auto) 2.02, Nucleated RBC % 0 03/14/20 06:15: Sodium 141, Potassium 3.7, Chloride 111 H, Carbon Dioxide 26.0, Anion Gap 4 L, BUN 16, Creatinine 1.12, Estim Creat Clear Calc 63.29, Est GFR (MDRD) Af Amer 86, Est GFR (MDRD) Non-Af 71, BUN/Creatinine Ratio 14.3, Glucose 86, Calcium 8.5, Total Bilirubin 0.40, AST 20, ALT 20, Alkaline Phosphatase 57, Total Protein 6.8, Albumin 3.5, Globulin 3.3, Albumin/Globulin Ratio 1.1 03/14/20 06:15: PT 24.2 H, INR 2.2 Current Medications Acetaminophen (Tylenol) 650 mg PO Q6H PRN PRN PRN Reason: Pain Score 1-10/Temp > 100.7 F Last Admin: 03/13/20 22:52 Dose: 650 mg Documented by: Al Hydroxide/Mg Hydroxide (Mylanta Ii) 30 ml PO Q6H PRN PRN PRN Reason: Gastric Burning Albuterol Sulfate (Ventolin Aerosols) 2.5 mg INHALATION Q2H PRN PRN PRN Reason: Dyspnea, wheezing Atorvastatin Calcium (Lipitor) 20 mg PO QHS [facility] Last Admin: 03/13/20 22:52 Dose: 20 mg Documented by: Famotidine (Pepcid) 20 mg PO BID [facility] Last Admin: 03/14/20 09:59 Dose: 20 mg Documented by: Guaifenesin (Robitussin) 20 ml PO Q4H PRN PRN PRN Reason: COUGH Sodium Chloride () 1,000 mls @ 75 mls/hr IV .[id number] [facility] Last Admin: 03/14/20 05:20 Dose: 75 mls/hr Documented by: Magnesium Hydroxide (Milk Of Magnesia) 30 ml PO DAILY PRN PRN PRN Reason: Constipation Meclizine HCl (Antivert) 12.5 mg PO 4X/DAY PRN PRN PRN Reason: recurrent vertigo Melatonin (Melatonin) 3 mg PO QHS PRN PRN PRN Reason: INSOMNIA Morphine Sulfate () 2 mg IV Q3H PRN PRN PRN Reason: Pain Score 6-10 Nitroglycerin (Nitrostat) 0.4 mg SUBLINGUAL Q5M PRN PRN Reason: CARDIAC/CHEST PAIN Ondansetron HCl (Zofran) 4 mg IV Q8H PRN PRN PRN Reason: NAUSEA/VOMITING Oxycodone HCl (Oxyir) 5 mg PO Q4H PRN PRN PRN Reason: Pain Score 4-5 Prochlorperazine Edisylate (Compazine Iv) 5 mg IV Q4H PRN PRN PRN Reason: Breakthrough Nausea/Vomiting Psyllium Hydrophilic Mucilloid (Metamucil) 1 packet PO DAILY PRN PRN PRN Reason: Constipation Senna/Docusate Sodium (Senokot-S, Vilma-Colace) 2 tablet PO BID PRN PRN PRN Reason: Constipation Sodium Chloride () 10 - 40 ml IV UD PRN PRN Reason: Multilumen/Encarnacion Flush Last Admin: 03/12/20 23:21 Dose: 40 ml Documented by: Sodium Chloride (0.9% Nacl (Sterile) Posiflush) 10 - 40 ml IV UD PRN PRN Reason: Port access or dressing change Sodium Chloride () 10 - 40 ml IV UD PRN PRN Reason: SALINE FLUSH Throat Lozenges (Cepacol Sore Throat Lozenge) 1 lozenge MUCOUS MEM Q2H PRN PRN PRN Reason: SORE THROAT Warfarin Sodium (Jantoven) 2 mg PO DAILY@1700 [facility] Last Admin: 03/13/20 16:05 Dose: 2 mg Documented by: Discharge Diet: Low fat/ Low Cholesterol, 2000 mg Sodium Diet Discharge Activity: Return to Normal Activity Home Medications: Medications to take at Discharge Acetaminophen [Acetaminophen 8 Hour] 650 mg PO 12/22/19 Atorvastatin Calcium [Lipitor] 20 mg PO QHS 12/22/19 Daily Vitamin Formula-Minerals 12/22/19 Warfarin [Coumadin] 2 mg PO QHS 03/12/20 Primary Care Physician: Karolina Nolasco MD [Primary Care Provider] - Please follow up with your Primary Care Physician in: within 1-2 weeks Please Follow Up With: Bowling Ball Patcher in [facility] in 1 week Disposition: Senior Care facility Minutes spent on discharge:: 35 Patient Condition:: Stable Medical Necessity - Tobacco Use Smoking Status: Never smoker Tobacco Use: Non-smoker Meaningful Use Info Meaningful Use Diagnoses (Choose all that apply): None applicable OBSV E&M: 78226 Observation care discharge
--- NOTE | 2020-03-14 16:02 | NURSING ---
Right IJ removed along with 2 sutures. Tip intact. Pressure held for 5minutes. Vaseline gauze with 4x4 and secured with Tegaderm. Instructed to lay flat x 30min. Verbalizes understanding.
== END 2020-03-14 11:31 | disposition home or self-care (01) ==
LOC: ICU 03-14 10:08 → PCU 03-14 10:08
PROVIDERS: Admitting Provider Family Medicine; PCP Family Medicine; Visit Provider Internal Medicine
DX: R42 Dizziness and giddiness (principal); I95.2 Hypotension due to drugs; R00.1 Bradycardia, unspecified; I25.10 Atherosclerotic heart disease of native coronary artery without angina pectoris; I50.32 Chronic diastolic (congestive) heart failure; I11.0 Hypertensive heart disease with heart failure; E78.5 Hyperlipidemia, unspecified; Z79.899 Other long term (current) drug therapy; Z79.01 Long term (current) use of anticoagulants; Z95.1 Presence of aortocoronary bypass graft; Z95.2 Presence of prosthetic heart valve; Z86.718 Personal history of other venous thrombosis and embolism; I25.2 Old myocardial infarction; I48.0 Paroxysmal atrial fibrillation; E87.6 Hypokalemia; R73.9 Hyperglycemia, unspecified
CPT/HCPCS: 36415; 80053; 83036; 83735; 84439; 84443; 84484; 85025; 85610; 93005; 93306; 96360; 96361; 99218; 99251; J7030; A4216; G0378; G0379; G0463

== ENCOUNTER 2020-03-24 13:00 | Outpatient (RCR) | payer BC, SELFPAY ==
[2019-12-22 13:47] VITALS: BMI 25.6
[2020-02-21 06:52] VITALS: BMI 25.9
[2020-03-02 00:35] VITALS: BP 110/60; BP 90/74
--- NOTE | 2020-03-20 07:07 | PCM.CR.ITP ---
Exercise - 90-day Assessment - Visit Date of Eval: 03/20/20 Session #:: 33 - MISSED 7 SESSIONS DUE TO HOSPITALIZATION FOR HYPOTENSION - Physician Prescribed Exercise Modalities: Treadmill, Airdyne, NuStep Frequency: 3x/week for 12 weeks [36 sessions] Intensity: 60-80% of age predicted maximum heart rate reserve Current METSs:: 5.0 UNCHANGED Target Heart Rate:: 104-136 Current RPE:: 13-14 Maximum Excercise HR:: 142 Resting Blood Pressure: 124/72 Maximum Exercise Blood Pressure: 144/62 EKG Type: NSR TO SINUS TACHYCARDIA WITH OCCASIONAL PAC RARE PVC - Outcomes & Goals Goals:: Verbalizes understanding of THR, RPE & goal METS by session 6, Documents in home exercise log/reports 30 min aerobic 5 day/wk by DC, Demonstrates accurate pulse taking by DC - Intervention & Plan Exercise Program Goals: Instruct on personal THR & RPE, Instruct on MET level & personal MET goal, Show patient to take own pulse /validate performance until accurate, Instruct on home exercise - 30-day Reassessments 30 day Reassessments:: Met - Physical Activity Home Exercise Physical Activity - Home Exercise: Safe Exercise, Warm-up, Self-monitoring, Cool-Down, Home Exercise > 30 min Daily, Sitting Time <3 hours/daily - Outcomes & Goals Outcomes/Goals: Demonstrates correct Warm-up/exercise Cool-Down (S3) if = 2.5 METs, Verbalizes symptoms of exercise intolerance by Session 3 (S3), Demonstrate safe equipment use (S3) & follows exercise prescrition (6) - Intervention & Plan Plan/Intervention: Instruct warm-up & cool-down if exercising at > 2 METs, Instruct on symptoms of exercise intolerance & actions to take, Instruct & monitor on saf, Assess intial functional capacity & safety risk - 30-day Reassessments 30 day Reassessments:: Met Nutrition - 90-Day Assessment - Program Goals Nutrition Program Goals: LDL <100 optimal. 100 - 129 Near optimal. 130 - 159 Borderline High. 160 - 189 High. Total Cholesterol <200 desirable. 200 - 239 Borderline High. >/= 240 High. HDL < 40 Low >/=60 High. Triglycerides <150 desirable. <199 optimal. VlDL 5 - 40. HgbA1C <7%. BMI <25 Patient has diagnosis of Hyperlipidemia (ICD E78)?: Yes - Visit Date of Assessment:: 03/20/20 Session #:: 33 - NO REPEAT LABS DONE - Cholesterol/Lipids Determine presence & major risk factors that modify LDL goal: Hypertension or hypertensive medication, Age men > 45 years; women >/= 55 years Outcomes/Goals: Pt IDs own risk factors & lifestyle modifications by Session 10, Verbalizes symptoms of angina & response by session 3., Pt independently manages Intervention/Plan: Instruct on personal lipid levels & lipid goals/NCEP guidelines, Instruct on cholesterol Referral to dietitian:: No 30-day Reassessments:: Progressing - Diabetes (Other Core Measures) Diabetes Type: Not Applicable - Weight Mgt (Other Care) Not Applicable: Yes Height: 5 ft 6 in Weight:: 161 lb 8 oz BMI: 26.0 Diagnosis Overweight/Obesity BMI> 30% ICD-10 E66: No Diagnosis High BMI/Morbid Obesity BMI> 35% ICD-10 Z68: No Outcomes/Goals: Pt sets, maintains & shows weight loss goal & trend during rehab Intervention/Plan: Instruct on ideal BMI & set weight loss goal w/patient, Assist pt to ID & incorporate diet changes for weight loss by S9, Encourage goal of using 250-300dcal per session for weight loss 30 day Reassessments:: Met - Healthy Eating Habits Will attend diet classes:: Yes Outcomes/Goals:: Consume diet rich in vegs,fruits,whole grain/high fiber,fish,lean meat, Limit sat/trans fats,cholesterol & added salts & sugars Intervention/Plan:: Assess current eating habits 30-day Reassessments:: Met - Education Gave educational materials for:: Healthy eating Medical- 90-Day Assessment - Visit Date of Eval: 03/20/20 Session #:: 33 - Medication Compliance Preventative Medication(s):: Aspirin, Statin/lipid, Beta vee H/O mental health issues: depression, anxiety, or addiction?: No Doesn?t believe in the benefits of treatment?: No Believes medications are unnecessary or harmful?: No Has a concern about medication side effects?: No Expresses concern over the cost of medications?: No Outcomes/Goals: Verbalizes medications,desired effect & common side effects @ DC, Pt self-reports following medication regimen, Keeps card in wallet w/medications listed by DC Interventions/plans: Instruct on medication effects & side effects, Review medication list w/patient every two weeks, Instruct importance of taking meds as ordered & assist problem solving 30-day Reassessments:: Met - Tobacco Use Tobacco Use: Non-smoker - Hypertension Hypertension Diagnosis:: Hypertension ICD-10 I10 Resting Blood Pressure:: 98/60 [place] [employer] Hypertension Guidelines: [place] [employer] Hypertension Guidelines. Normal BP Less than 120/80. Elevated BP 120/80. Hypertension Stage 1: BP 130-139/80-89. Hypertesnion Stage 2: BP 140 or higher/90 or higher. Hypertension Crisis: BP higher than 180/120 Peak Exercise Blood Pressure:: 124/72 - Symptomatic hypotension taken off metoprolol Outcomes/Goals: Able to verbalize/achieve optimal blood pressure <130/80, Incorporates diet changes & exercise for blood pressure control by DC Interventions/plan: Instruct on optimal blood pressure, hypertension & medications, Instruct on effects of sodium, alcohol, stress, exercise &hypertension 30 day Reassessments:: Progressing - Tobacco Cessation Referral Smoking Cessation Referral:: No Individual Education/Counseling:: No Education Schedule Given:: Yes Psychosocial - 90-Day Assess - VIsit Date of Eval: 03/20/20 Session #:: 33 Not Applicable: Yes History of previous Mental disease:: No - Target Goals Target Goals: Assess presence or absence of depression. Using a valid screening tool, maximizes coping skills. Positive support system - Psychosocial Test Tool Used:: PHQ-9 Questionnaire phq-9 Severity: Severity. 1-4 Minimal Depression. 5-9 Mild Depression. 10-14 Moderate Depression. 15-19 Moderately Sever Depression. 20-27 Severe Depression. Rule: - Referral to Behavioral Health PS - Interventions: Yes Attend Stress Management Classes, No Referral to Behavioral Health if PHQ-9 score >9:, No Referral to [facility], No Referral to Physician if PHQ-9 if score is 5-9: - Outcomes/Goals: See list Psychosocial Outcomes/Goals:: ID's personal stressors & 2 strategies to manage stress by discharge - Intervention/Plan: See List Interventions/Plan:: Assess stressors,coping strategies & signs of derpression on admission, Instruct/assist pt to develop coping & personal stress Mgt strategies, Instruct patient to recognize signs & symptoms of depression, Instruct patient to recog - 30-day Reassessments: 30 day Reassessments:: Progressing Patient Health Questionnaire 90-Day Re-eval Assessment 1. Little interest or pleasure in doing things: Not at all 2. Feeling down, depressed, or hopeless: Not at all 3. Trouble falling or staying asleep, or sleeping too much: Several days 4. Feeling tired or having little energy: Not at all 5. Poor appetite or overeating: Not at all 6. Feeling bad about yourself -- or that you are a failure or have let yourself or your family down: Not at all 7. Trouble concentrating on things, such as reading the newspaper or watching television: Not at all 8. Moving or speaking so slowly that other people could have noticed. Or the opposite - being so fidgety or restless that you have been moving around a lot more than usual: Not at all 9. Thoughts that you would be better off , or of hurting yourself in some way: Not at all Total Score: 1 Self-Efficacy 90-Day Re-eval Assessment We would like to know how confident you are in doing certain activities. Please select your confidence level for:: Select your confidence level for the following using the scale 1-10 where 1 is not at all confident and 10 is totally confident. Your score is the average of all 6 responses. Fatigue: How confident are you that you can keep the fatigue caused by your disease from interfering with the things you want to do? Select Number: 8 Physical Discomfort or Pain: How confident are you that you can keep the physical discomfort or pain of your disease from interfering with the things you want to do? Select Number: 9 Emotional Distress: How confident are you that you can keep the emotional distress caused by your disease from interfering with the things you want to do? Select Number: 10 Other Symptoms or Health Problems: How confident are you that you can keep other symptoms or health problems from interfering with the things you want to do? Select Number: 10 Different Tasks and Activities: How confident are you that you can do the different tasks and activities needed to manage your health condition so as to reduce your need to see a doctor? Select Number: 10 Medication: How confident are you that you can do things other than just taking medication to reduce how much your illness affects your everyday life? Select Number: 10 Total Score:: 9
[2020-03-20 07:15] VITALS: BP 124/72; BP 98/60; BMI 26.0
== END 2020-04-01 23:59 ==
LOC: CR 13:00
PROVIDERS: PCP Family Medicine
DX: I34.0 Nonrheumatic mitral (valve) insufficiency (principal)
CPT/HCPCS: 93798

== ENCOUNTER 2020-03-28 16:13 | Outpatient (RCR) | payer BC, SELFPAY ==
[2019-12-22 13:47] VITALS: BMI 25.6
[2020-02-21 06:52] VITALS: BMI 25.9
[2020-03-12 20:12] VITALS: BMI 26.6
[2020-03-20 07:15] VITALS: BMI 26.0
== END 2020-03-28 23:59 | disposition home or self-care (01) ==
LOC: NS 16:13
PROVIDERS: PCP Family Medicine
DX: Z71.3 Dietary counseling and surveillance (principal); I25.10 Atherosclerotic heart disease of native coronary artery without angina pectoris; I10 Essential (primary) hypertension; E78.5 Hyperlipidemia, unspecified; Z95.2 Presence of prosthetic heart valve
CPT/HCPCS: 97803